=== PATIENT | female | born 1975 | race Caucasian/White ===

== ENCOUNTER 2020-05-07 11:29 | Emergency (ER) | payer OTHER ==
[2020-05-07] MEDS ORDERED: BENADRYL 50 MG/ML IV ONE (11:53)
[2020-05-07] MEDS ORDERED: Sodium Chloride 0.9% 1000 ML 1,000 ML IV STA (11:53)
[2020-05-07] MEDS ORDERED: TORAdol 30 mg Injection IV ONE (11:53)
[2020-05-07] MEDS ORDERED: Inapsine 5 MG/2 ML IV ONE (11:53)
[2020-05-07] MEDS ORDERED: TORAdol 30 mg Injection ONE (12:02)
[2020-05-07] MEDS ORDERED: Inapsine 5 MG/2 ML ONE (12:02)
[2020-05-07] MEDS ORDERED: BENADRYL 50 MG/ML ONE (12:03)
[2020-05-07] MEDS ORDERED: Sodium Chloride 0.9% 1000 ML 1,000 ML ONE (12:03)
[2020-05-07 12:05] LABS: Absolute Neutrophil Ct (ANC) 3.73 (1.4-6.9); BASOPHIL % 1.1 % (0.0-0.4); Eosinophil (Absolute #) 0.44 (0-0.5); Hemoglobin 14.2 gm/dl (12.0-16.0); Lymphocyte (Absolute #) 3.68 (1.0-4.6); Lymphocytes % 41.5 % (24.0-44.0); Mean Cell Volume 89.8 fl (78-100); Mean Corpuscular Hgb Concent. 32.3 g/dl (32-36); Mean Platelet Volume 11.5 fl (7.5-11.0); Monocyte (Absolute #) 0.91 (0.0-1.3); Monocytes % 10.3 % (0.0-12.0); Neutrophil % 42.1 % (36.0-66.0); Platelet Count 244 K/mm3 (150-450); Red Cell Distribution Width 12.6 % (11.5-14.0); White Blood Count 8.9 K/mm3 (4.0-10.5)
[2020-05-07 12:25] LABS: ALBUMIN 4.2 g/dL (3.5-5.0); ALKALINE PHOSPHATASE 75 U/L (38-126); ANION GAP 7.7 MEQ/L (5-15); BLOOD UREA NITROGEN 8 mg/dL (7-17); CHLORIDE 104 mmol/L (98-107); Calcium 9.5 mg/dL (8.4-10.2); Carbon Dioxide 30 mmol/L (22-30); Creatinine 1 0.69 mg/dL (0.52-1.04); EST GLOMERULAR FILTRATION RATE > 60.0 ML/MIN; Glucose 111 mg/dL (74-106); LIPASE 372 U/L (23-300); SGOT/AST 27 U/L (14-36); SGPT/ALT 18 U/L (0-35); SODIUM 138 mmol/L (137-145); Total Protein 7.4 g/dL (6.3-8.2)
--- NOTE | 2020-05-07 12:30 | ERPHSYRPT ---
- History of Present Illness Time Seen by Provider: 05/07/20 11:30 Source: patient Exam Limitations: no limitations Patient Subjective Stated Complaint: abd pain Triage Nursing Assessment: ptt o ED c/o abd pain. states she was hospitalized at [facility] 3 wks ago for pancreatitis. she was DC home and could tolerate PO fluids and food at that time. states in last 2-3 days pain has increased and began radiating to back and has not been tolering PO. last PO intake today was water and emesis followed. denies COVID exposure. and soft and tender to palp. Physician History: Patient here with midepigastric pain. Patient states she has a history of pancreatitis. Diagnosed few weeks ago. She was admitted to [facility]. She has been since discharge and follow-up with her PCP. However, she comes in because she has continued midepigastric pain. No falls no trauma. No fever no chills. Patient does have a history of rheumatoid arthritis and fibromyalgia. Location: mid-epigastric Quality: sharp Radiation: none Severity: moderate Duration: acute on chronic Timing: gradual Modifying factors/associated signs and symptoms: none tried Timing/Duration: week(s) Severity: moderate Allergies/Adverse Reactions: cephalexin [From Keflex] Allergy (Verified 05/07/20 11:43) codeine Allergy (Verified 05/07/20 11:43) latex Allergy (Verified 05/07/20 11:43) Penicillins Allergy (Verified 05/07/20 11:43) Home Medications: Acetaminophen [Tylenol Arthritis] 650 mg PO DAILY PRN PRN 05/07/20 [History] Adalimumab [Humira(Cf) Pen] 40 mg IJ WEEKLY 05/07/20 [History] Ascorbic Acid [Vitamin C] 1,000 mg PO DAILY 05/07/20 [History] Biotin [Mark Anthony Biotin] 10,000 mcg PO DAILY 05/07/20 [History] Buspirone HCl [Buspar] 15 mg PO TID 05/07/20 [History] Calcium Carb,Gluc/Mag Ox,Gluc [Calcium Magnesium Caplet] 1 tab PO DAILY 05/07/20 [History] Cholecalciferol (Vitamin D3) [D3 Dots] 125 mcg PO DAILY 05/07/20 [History] Cimetidine 200 mg PO DAILY PRN PRN 05/07/20 [History] Duloxetine HCl 30 mg PO BID 05/07/20 [History] Estradiol 2 mg PO DAILY 05/07/20 [History] Etodolac 400 mg [Lodine 400 mg] 400 mg PO BID 05/07/20 [History] Folic Acid 1 mg PO DAILY 05/07/20 [History] Hydroxychloroquine Sulfate 200 mg PO BID 05/07/20 [History] Hydroxyzine HCl 25 mg PO TID 05/07/20 [History] Lisinopril 10 mg [Zestril 10 MG] 10 mg PO DAILY 05/07/20 [History] Loratadine/Pseudoephedrine Sul [Claritin-D 12 Hour Tablet] 1 tab PO BID 05/07/20 [History] Montelukast Sodium 10 mg [Singulair 10 MG] 10 mg PO DAILY 05/07/20 [History] Multivit-Min/Iron/Folic/Lutein [Multivitamin Women 50 Plus Tab] 1 tab PO DAILY 05/07/20 [History] Pantoprazole 20 mg [Protonix 20MG Tablet] 40 mg PO DAILY 05/07/20 [History] Pregabalin 50 mg [Lyrica 50MG] 50 mg PO TID 05/07/20 [History] Tizanidine HCl 4 mg PO QID 05/07/20 [History] diphenhydrAMINE HCL [Benadryl] 25 mg PO DAILY PRN PRN 05/07/20 [History] predniSONE [Prednisone] 5 mg PO DAILY PRN PRN 05/07/20 [History] Hx Tetanus, Diphtheria Vaccination/Date Given: No Hx Influenza Vaccination/Date Given: Yes Hx Pneumococcal Vaccination/Date Given: No Immunizations Up to Date: Yes Travel Risk - International Travel Have you traveled outside of the country in past 3 weeks: No - Coronavirus Screening Are you exhibiting any of the following symptoms?: Yes Symptoms: Vomiting/Diarrhea Close contact with a COVID-19 positive Pt in past 14-21 Days: No - Review of Systems Constitutional: No Fever, No Chills Eyes: No Symptoms Ears, Nose, & Throat: No Symptoms Respiratory: No Cough, No Dyspnea Cardiac: No Chest Pain, No Edema, No Syncope Abdominal/Gastrointestinal: Abdominal Pain, Nausea, No Vomiting, No Diarrhea Genitourinary Symptoms: No Dysuria Musculoskeletal: No Back Pain, No Neck Pain Skin: No Rash Neurological: No Dizziness, No Focal Weakness, No Sensory Changes Psychological: No Symptoms Endocrine: No Symptoms All Other Systems: Reviewed and Negative - Past Medical History Pertinent Past Medical History: Yes Neurological History: Migraines, Other Cardiac History: No Pertinent History Respiratory History: Asthma, Pneumonia Endocrine Medical History: No Pertinent History Musculoskeletal History: Fibromyalgia, Osteoarthritis, Rheumatoid Arthritis Other Medical History: SX HX: CHOLESTECTOMY, RONN, - Past Surgical History Past Surgical History: Yes Gastrointestinal: Cholecystectomy Female Surgical History: Hysterectomy - Social History Smoking Status: Current every day smoker How long have you smoked: years Exposure to second hand smoke: Yes Drug Use: none Patient Lives Alone: No - Female History Hx Now: No (hysterectomy) - Nursing Vital Signs Nursing Vital Signs: Initial Vital Signs Temperature 97.4 F 05/07/20 11:34 Pulse Rate 93 H 05/07/20 11:34 Respiratory Rate 17 05/07/20 11:34 Blood Pressure 163/101 05/07/20 11:34 O2 Sat by Pulse Oximetry 98 05/07/20 11:34 Pain Scale Pain Intensity 9 - Physical Exam General Appearance: no apparent distress, alert Eye Exam: PERRL/EOMI, eyes nml inspection Ears, Nose, Throat Exam: normal ENT inspection, TMs normal, pharynx normal, moist mucous membranes Neck Exam: normal inspection, non-tender, supple, full range of motion Respiratory Exam: normal breath sounds, lungs clear, No respiratory distress Cardiovascular Exam: regular rate/rhythm, normal heart sounds, normal peripheral pulses Gastrointestinal/Abdomen Exam: soft, normal bowel sounds, other (Midepigastric tenderness without rebound or guarding.), No tenderness, No mass Back Exam: normal inspection, normal range of motion, No CVA tenderness, No vertebral tenderness Extremity Exam: normal inspection, normal range of motion, pelvis stable Neurologic Exam: alert, oriented x 3, cooperative, normal mood/affect, nml cerebellar function, nml station & gait, sensation nml, No motor deficits Skin Exam: normal color, warm, dry, No rash Lymphatic Exam: No adenopathy SpO2: 98 - Course Nursing assessment & vital signs reviewed: Yes Ordered Tests: Active Orders 24 hr Category Date Time Status Bedrest with BRP/BSC ROUTINE Activity 05/07/20 13:12 Ordered Call Admit Doctor for Orders ON ADMISSION Care 05/07/20 13:12 Ordered Code Status Order ROUTINE Care 05/07/20 13:11 Ordered EKG-ER Only STAT Care 05/07/20 11:53 Active Fall Protocol ROUTINE Care 05/07/20 13:12 Ordered IV Care Q6H Care 05/07/20 13:11 Ordered IV Insertion STAT Care 05/07/20 11:[address] in Observation ROUTINE Care 05/07/20 13:11 Ordered NPO Diet 05/07/20 13:12 Ordered ABDOMEN AND PELVIS W CONTRAST [CT] Stat Exams 05/07/20 11:55 Taken CBC W DIFF AM.LAB Lab 05/08/20 04:00 Ordered CBC W DIFF Stat Lab 05/07/20 11:50 Completed CMP AM.LAB Lab 05/08/20 04:00 Ordered CMP Stat Lab 05/07/20 11:50 Completed ESR [Erythrocyte Sedimentation Rate] Stat Lab 05/07/20 11:50 Completed LIPASE Stat Lab 05/07/20 11:50 Completed Lactic Acid AM.LAB Lab 05/08/20 04:00 Ordered UA W/RFX UR CULTURE Stat Lab 05/07/20 11:53 Ordered Medication Summary Discontinued Medications Generic Name Dose Route Start Last Admin Trade Name Freq PRN Reason Stop Dose Admin Diphenhydramine HCl 25 mg 05/07/20 11:53 05/07/20 12:05 Benadryl 50 Mg/Ml IV 05/07/20 11:54 25 mg STAT ONE Administration Diphenhydramine HCl Confirm 05/07/20 12:03 Benadryl 50 Mg/Ml Administered 05/07/20 12:04 Dose 50 mg .ROUTE .STK-MED ONE Droperidol 1.25 mg 05/07/20 11:53 05/07/20 12:07 Inapsine 5 Mg/2 Ml IV 05/07/20 11:54 1.25 mg STAT ONE Administration Droperidol Confirm 05/07/20 12:02 Inapsine 5 Mg/2 Ml Administered 05/07/20 12:03 Dose 5 mg .ROUTE .STK-MED ONE Sodium Chloride 1,000 mls @ 999 mls/hr 05/07/20 11:53 05/07/20 13:07 Sodium Chloride 0.9% 1000 Ml IV 05/07/20 12:53 Infused .Q1H1M STA Infusion Sodium Chloride Confirm 05/07/20 12:03 Sodium Chloride 0.9% 1000 Ml Administered 05/07/20 12:04 Dose 1,000 mls @ ud .ROUTE .STK-MED ONE Ketorolac Tromethamine 30 mg 05/07/20 11:53 05/07/20 12:06 Toradol 30 Mg Injection IV 05/07/20 11:54 30 mg STAT ONE Administration Ketorolac Tromethamine Confirm 05/07/20 12:02 Toradol 30 Mg Injection Administered 05/07/20 12:03 Dose 30 mg .ROUTE .STK-MED ONE Lab/Rad Data: Laboratory Result Diagrams 05/07/20 11:50 05/07/20 11:50 Laboratory Results 05/07/20 05/07/20 05/07/20 Range/Units 11:50 11:50 11:50 WBC 8.9 (4.0-10.5) K/mm3 RBC 4.90 (4.1-5.4) M/mm3 Hgb 14.2 (12.0-16.0) gm/dl Hct 44.0 (35-47) % MCV 89.8 (78-100) fl MCH 29.0 (26-32) pg MCHC 32.3 (32-36) g/dl RDW 12.6 (11.5-14.0) % Plt Count 244 (150-450) K/mm3 MPV 11.5 H (7.5-11.0) fl Gran % 42.1 (36.0-66.0) % Eos # (Auto) 0.44 (0-0.5) Absolute Lymphs (auto) 3.68 (1.0-4.6) Absolute Monos (auto) 0.91 (0.0-1.3) Lymphocytes % 41.5 (24.0-44.0) % Monocytes % 10.3 (0.0-12.0) % Eosinophils % 5.0 (0.00-5.0) % Basophils % 1.1 (0.0-0.4) % Absolute Granulocytes 3.73 (1.4-6.9) Basophils # 0.10 (0-0.4) ESR 30 H (0-20) mm/hr Sodium 138 (137-145) mmol/L Potassium 4.0 (3.5-5.1) mmol/L Chloride 104 (98-107) mmol/L Carbon Dioxide 30 (22-30) mmol/L Anion Gap 7.7 (5-15) MEQ/L BUN 8 (7-17) mg/dL Creatinine 0.69 (0.52-1.04) mg/dL Estimated GFR > 60.0 ML/MIN Glucose 111 H (74-106) mg/dL Calcium 9.5 (8.4-10.2) mg/dL Total Bilirubin 0.40 (0.2-1.3) mg/dL AST 27 (14-36) U/L ALT 18 (0-35) U/L Alkaline Phosphatase 75 (38-126) U/L Serum Total Protein 7.4 (6.3-8.2) g/dL Albumin 4.2 (3.5-5.0) g/dL Lipase 372 H (23-300) U/L - Progress Progress: improved Progress Note: 05/07/20 12:30 differential diagnosis includes kidney stone, compression fracture, infection, UTI, triple AAA - basic labs including: CBC, lipase, CMP, UA, ESR - insert IV for fluids, pain meds, nausea control - consider imaging: CT ab/pelvis 05/07/20 13:13 Patient has acute pancreatitis. We will admit here. After reviewing labs, appropriate imaging, discussion with patient and family. We decided the patient should be admitted to the hospital. I called the inpatient team discussed history, physical and results with them in detail. We decided on the plan of action and admission to [facility]. We agreed on appropriate consults and who would call them. - Departure Departure Disposition: Observation Clinical Impression: Acute pancreatitis Condition: Stable Critical Care Time: No Referrals: PHOUNG ABDULLAHI [Primary Care Provider] -
[2020-05-07] MEDS ORDERED: Zofran 4 MG/2 ML VIAL IV PRN (13:11)
[2020-05-07] MEDS ORDERED: DECADRON 10MG INJ. IV ONE (13:15)
[2020-05-07] MEDS ORDERED: DECADRON 10MG INJ. ONE (13:19)
[2020-05-07] MEDS: Sodium Chloride 0.9% 1000 ML 1,000 ML IV SCH (13:53)
--- NOTE | 2020-05-07 14:50 | PCM.HP ---
History of Present Illness - Chief Complaint Chief Complaint: pancreaitis History of Present Illness: is a 44 year old female who was admitted to [facility] 3 weeks ago for acute pancreatitis, she states she was sent home with persistent pain but was told she was ok because she was able to tolerate po intake, has been able to eat and drink but pain has worsened in the last 2-3 days and yesterday she began vomiting and unable to keep anything down. Has a history of RA, is on a long li st of medications and receives care in [facility] system, hx of cholecystectomy and denies regular alcohol use. - Review of Systems Constitutional: No Fever, No Chills Respiratory: No Cough, No Short Of Breath Cardiac: No Chest Pain, No Edema, No Syncope Abdominal/Gastrointestinal: Abdominal Pain, Nausea, Vomiting, No Diarrhea, No Constipation Genitourinary Symptoms: No Dysuria Skin: No Rash All Other Systems: Reviewed and Negative Medications & Allergies Home Medications: Home Medication List Acetaminophen [Tylenol Arthritis] 650 mg PO DAILY PRN PRN 05/07/20 [History Confirmed 05/07/20] Adalimumab [Humira(Cf) Pen] 40 mg IJ WEEKLY 05/07/20 [History Confirmed 05/07/20] Ascorbic Acid [Vitamin C] 1,000 mg PO DAILY 05/07/20 [History Confirmed 05/07/20] Biotin [Mark Anthony Biotin] 10,000 mcg PO DAILY 05/07/20 [History Confirmed 05/07/20] Buspirone HCl [Buspar] 15 mg PO TID 05/07/20 [History Confirmed 05/07/20] Calcium Carb,Gluc/Mag Ox,Gluc [Calcium Magnesium Caplet] 1 tab PO DAILY 05/07/20 [History Confirmed 05/07/20] Cholecalciferol (Vitamin D3) [D3 Dots] 125 mcg PO DAILY 05/07/20 [History Confirmed 05/07/20] Cimetidine 200 mg PO DAILY PRN PRN 05/07/20 [History Confirmed 05/07/20] Duloxetine HCl 30 mg PO BID 05/07/20 [History Confirmed 05/07/20] Estradiol 2 mg PO DAILY 05/07/20 [History Confirmed 05/07/20] Etodolac 400 mg [Lodine 400 mg] 400 mg PO BID 05/07/20 [History Confirmed 05/07/20] Folic Acid 1 mg PO DAILY 05/07/20 [History Confirmed 05/07/20] Hydroxychloroquine Sulfate 200 mg PO BID 05/07/20 [History Confirmed 05/07/20] Hydroxyzine HCl 25 mg PO TID 05/07/20 [History Confirmed 05/07/20] Lisinopril 10 mg [Zestril 10 MG] 10 mg PO DAILY 05/07/20 [History Confirmed 05/07/20] Loratadine/Pseudoephedrine Sul [Claritin-D 12 Hour Tablet] 1 tab PO BID 05/07/20 [History Confirmed 05/07/20] Montelukast Sodium 10 mg [Singulair 10 MG] 10 mg PO DAILY 05/07/20 [History Confirmed 05/07/20] Multivit-Min/Iron/Folic/Lutein [Multivitamin Women 50 Plus Tab] 1 tab PO DAILY 05/07/20 [History Confirmed 05/07/20] Pantoprazole 20 mg [Protonix 20MG Tablet] 40 mg PO DAILY 05/07/20 [History Confirmed 05/07/20] Pregabalin 50 mg [Lyrica 50MG] 50 mg PO TID 05/07/20 [History Confirmed 05/07/20] Tizanidine HCl 4 mg PO QID 05/07/20 [History Confirmed 05/07/20] diphenhydrAMINE HCL [Benadryl] 25 mg PO DAILY PRN PRN 05/07/20 [History Confirmed 05/07/20] predniSONE [Prednisone] 5 mg PO DAILY PRN PRN 05/07/20 [History Confirmed 05/07/20] Allergies/Adverse Reactions: Allergies Allergy/AdvReac Type Severity Reaction Status Date / Time cephalexin [From Keflex] Allergy Verified 05/07/20 11:43 codeine Allergy Verified 05/07/20 11:43 latex Allergy Verified 05/07/20 11:43 Penicillins Allergy Verified 05/07/20 11:43 - Past Medical History Past Medical History: Yes Neurological History: Migraines, Other Cardiac History: Hypertension Respiratory History: Asthma, Pneumonia Endocrine Medical History: No Pertinent History Musculoskelatal History: Fibromyalgia, Osteoarthritis, Rheumatoid Arthritis GI Medical History: Gallbladder Disease, Pancreatitis Pyscho-Social History: Anxiety, Depression Reproductive Disorders: Abnormal Uterine Bleeding, Endometriosis, Menstrual Problems Comment: SX HX: CHOLESTECTOMY, RONN, - Female History Are you now?: No (hysterectomy) - Past Surgical History Past Surgical History: Yes Neuro Surgical History: No Pertinent History Cardiac History: No Pertinent History Respiratory Surgery: No Pertinent History GI Surgical History: Cholecystectomy, Exploratory Laparoscopy Genitourinary Surgical Hx: No Pertinent History Musculskeletal Surgical Hx: No Pertinent History Female Surgical History: Hysterectomy - Social History Smoking Status: Current every day smoker How long have you smoked: years Exposure to second hand smoke: Yes Alcohol: Rarely Drug Use: none - Physical Exam Vital Signs: Vital Signs - 24 hr Temp Pulse Resp BP Pulse Ox 05/07/20 13:15 98 05/07/20 13:15 83 18 124/90 95 05/07/20 11:34 97.4 F 93 H 17 163/101 98 General Appearance: no apparent distress, obese Neurologic Exam: alert, oriented x 3, cooperative Respiratory Exam: normal breath sounds, lungs clear, No respiratory distress Cardiovascular Exam: regular rate/rhythm, normal heart sounds, normal peripheral pulses Gastrointestinal/Abdomen Exam: soft, tenderness (epigastrium), No guarding, No rebound Extremity Exam: normal inspection, normal range of motion, pelvis stable Skin Exam: normal color, warm, dry, No rash Results - Labs Lab/Micro Results: Lab Results-Last 24 Hours 05/07/20 05/07/20 05/07/20 Range/Units 11:50 11:50 11:50 WBC 8.9 (4.0-10.5) K/mm3 RBC 4.90 (4.1-5.4) M/mm3 Hgb 14.2 (12.0-16.0) gm/dl Hct 44.0 (35-47) % MCV 89.8 (78-100) fl MCH 29.0 (26-32) pg MCHC 32.3 (32-36) g/dl RDW 12.6 (11.5-14.0) % Plt Count 244 (150-450) K/mm3 MPV 11.5 H (7.5-11.0) fl Gran % 42.1 (36.0-66.0) % Eos # (Auto) 0.44 (0-0.5) Absolute Lymphs (auto) 3.68 (1.0-4.6) Absolute Monos (auto) 0.91 (0.0-1.3) Lymphocytes % 41.5 (24.0-44.0) % Monocytes % 10.3 (0.0-12.0) % Eosinophils % 5.0 (0.00-5.0) % Basophils % 1.1 (0.0-0.4) % Absolute Granulocytes 3.73 (1.4-6.9) Basophils # 0.10 (0-0.4) ESR 30 H (0-20) mm/hr Sodium 138 (137-145) mmol/L Potassium 4.0 (3.5-5.1) mmol/L Chloride 104 (98-107) mmol/L Carbon Dioxide 30 (22-30) mmol/L Anion Gap 7.7 (5-15) MEQ/L BUN 8 (7-17) mg/dL Creatinine 0.69 (0.52-1.04) mg/dL Estimated GFR > 60.0 ML/MIN Glucose 111 H (74-106) mg/dL Calcium 9.5 (8.4-10.2) mg/dL Total Bilirubin 0.40 (0.2-1.3) mg/dL AST 27 (14-36) U/L ALT 18 (0-35) U/L Alkaline Phosphatase 75 (38-126) U/L Serum Total Protein 7.4 (6.3-8.2) g/dL Albumin 4.2 (3.5-5.0) g/dL Lipase 372 H (23-300) U/L - Radiology Impressions Radiology Exams & Impressions: Radiology Procedures Category Date Time Status ABDOMEN AND PELVIS W CONTRAST [CT] Stat Exams 05/07/20 11:55 Taken Assessment/Plan (1) Acute pancreatitis Current Visit: Yes Status: Acute Assessment & Plan: etiology unclear, no obstruction or cyst on ct scan. plan npo, antiemetics and pain control and fluids, repeat enzymes in the am. will likely need GI consult following discharge, ?autoimmune etiology of pancreatitis vs medication side effect. home med list has been debrided at time of admission Code(s): K85.90 - ACUTE PANCREATITIS WITHOUT NECROSIS OR INFECTION, UNSP (2) Rheumatoid arthritis Current Visit: Yes Status: Acute Code(s): M06.9 - RHEUMATOID ARTHRITIS, UNSPECIFIED
--- NOTE | 2020-05-07 16:08 | XRAY ---
Indication: Upper abdomen pain 3 weeks. History of pancreatitis. Multiple contiguous axial images obtained through the abdomen and pelvis using 80 cc of Isovue-370 contrast only. Comparison: None. Lung bases clear. Heart is not enlarged. Noncontrasted stomach and bowel loops appear nonobstructed. Normal appendix with appendicoliths. Radiopacities throughout the small and large bowel loops presumed ingested medication/bismuth or barium. Previous cholecystectomy and hysterectomy. Pancreas demonstrates minimal haziness possible mild/early pancreatitis. No free fluid/air. Mild fatty hepatomegaly measuring 21.8 cm. 2 cm right renal cyst. Remaining liver, pancreas, spleen, adrenal glands, kidneys, ureters, bladder, and aorta appear unremarkable. No pathologic retroperitoneal lymphadenopathy. Osseous structures intact with mild degenerative spondylosis throughout the thoracolumbar spine and bilateral L5 spondylolysis with 6-7 mm spondylolisthesis. Small infraumbilical fatty ventral hernia. Impression: 1. Pancreatic haziness. Rule out mild/early pancreatitis. 2. Incidental fatty hepatomegaly, right renal cyst, multilevel degenerative spondylosis, fatty ventral hernia, and L5 spondylolysis with grade 1 spondylolisthesis. Comment: Preliminary interpretation was made by [facility]. No critical discrepancy.
[2020-05-07] MEDS: Lyrica 50MG PO SCH ×2 (16:42→21:19)
[2020-05-07] MEDS: BUSPAR 5 MG PO SCH ×2 (16:43→21:20)
[2020-05-07] MEDS: NICODERM CQ 14 MG TOP SCH (16:43)
[2020-05-07 16:50] LABS: Appearance CLEAR (CLEAR); Bilirubin NEGATIVE (NEGATIVE); Blood NEGATIVE Ery/ul (0-5); Epithelial Cells RARE /HPF (FEW); Glucose NEGATIVE (NEGATIVE); Ketones NEGATIVE (NEGATIVE); Leukocyte Esterase NEGATIVE (NEGATIVE); Mucus SLIGHT /HPF (NEGATIVE); Nitrite NEGATIVE (NEGATIVE); Protein,Urine Dip 30 (Negative); Urobilinogen NEGATIVE mg/dL (0-1)
[2020-05-07 16:52] LABS: Specific Gravity 1.015 (1.005-1.025)
[2020-05-07] MEDS: Hydromorphone 1 mg/ml Injection IV PRN (19:48)
[2020-05-07] MEDS: Cymbalta 30 MG Capsule PO SCH (21:19)
[2020-05-07] MEDS: HYDROXYCHLOROQUINE SULFATE PO SCH (21:20)
[2020-05-07] MEDS ORDERED: NON-FORMULARY ITEM (Buspirone Hcl [Buspar] 15 MG) PO SCH (22:00)
[2020-05-08] MEDS: Sodium Chloride 0.9% 1000 ML 1,000 ML IV SCH (00:01)
[2020-05-08 05:53] LABS: Absolute Neutrophil Ct (ANC) 6.34 (1.4-6.9); BASOPHIL % 0.1 % (0.0-0.4); Basophil (Absolute #) 0.01 (0-0.4); Eosinophil % 0.1 % (0.00-5.0); Eosinophil (Absolute #) 0.01 (0-0.5); Hematocrit 40.3 % (35-47); Hemoglobin 13.2 gm/dl (12.0-16.0); Lymphocyte (Absolute #) 1.17 (1.0-4.6); Mean Cell Volume 89.2 fl (78-100); Mean Corpuscular Hemoglobin 29.2 pg (26-32); Mean Corpuscular Hgb Concent. 32.8 g/dl (32-36); Mean Platelet Volume 10.9 fl (7.5-11.0); Monocyte (Absolute #) 0.27 (0.0-1.3); Monocytes % 3.5 % (0.0-12.0); Neutrophil % 81.3 % (36.0-66.0); Platelet Count 242 K/mm3 (150-450); Red Blood Count 4.52 M/mm3 (4.1-5.4); Red Cell Distribution Width 12.2 % (11.5-14.0); White Blood Count 7.8 K/mm3 (4.0-10.5)
[2020-05-08 06:12] LABS: AMYLASE 33 U/L (30-110); LIPASE 83 U/L (23-300)
[2020-05-08 06:14] LABS: ALBUMIN 3.9 g/dL (3.5-5.0); ALKALINE PHOSPHATASE 62 U/L (38-126); ANION GAP 8.8 MEQ/L (5-15); BLOOD UREA NITROGEN 9 mg/dL (7-17); CHLORIDE 108 mmol/L (98-107); Calcium 8.8 mg/dL (8.4-10.2); Carbon Dioxide 25 mmol/L (22-30); Creatinine 1 0.47 mg/dL (0.52-1.04); EST GLOMERULAR FILTRATION RATE > 60.0 ML/MIN; Glucose 132 mg/dL (74-106); Potassium 4.2 mmol/L (3.5-5.1); SGOT/AST 24 U/L (14-36); SGPT/ALT 17 U/L (0-35); SODIUM 137 mmol/L (137-145); Total Protein 6.9 g/dL (6.3-8.2)
[2020-05-08] MEDS: Hydromorphone 1 mg/ml Injection IV PRN (06:16)
[2020-05-08 06:44] VITALS: BP 168/88; PULSE 82; O2SAT 93
[2020-05-08] MEDS: NICODERM CQ 14 MG TOP SCH (08:27)
[2020-05-08] MEDS: Cymbalta 30 MG Capsule PO SCH (08:51)
[2020-05-08] MEDS: Lyrica 50MG PO SCH (08:52)
[2020-05-08] MEDS: BUSPAR 5 MG PO SCH (08:52)
[2020-05-08] MEDS: HYDROXYCHLOROQUINE SULFATE PO SCH (08:52)
--- NOTE | 2020-05-08 09:00 | PCM.DS ---
Discharge Summary Date of Admission: 05/07/20 13:29 Admitting Physician: HUSEYIN HERNANDEZ Primary Care Provider: PHUONG ABDULLAHI Allergies Allergies cephalexin [From Keflex] Allergy (Verified 05/07/20 11:43) codeine Allergy (Verified 05/07/20 11:43) latex Allergy (Verified 05/07/20 11:43) Penicillins Allergy (Verified 05/07/20 11:43) Hospital Summary - Hospital Course Hospital Course: patient was admitted with recurent pancreatitis, enzymes have resolved and she feels much better. insists she needs to go home today to care for her mother, she understands importance of bland diet and to keep GI f/u appt - Vitals & Intake/Output Vital Signs: Vital Signs Temperature 97.1 F 05/08/20 06:44 Pulse Rate 82 05/08/20 06:44 Respiratory Rate 18 05/08/20 06:44 Blood Pressure 168/88 05/08/20 06:44 O2 Sat by Pulse Oximetry 93 L 05/08/20 06:44 Intake & Output: Intake & Output 05/05/20 05/06/20 05/07/20 05/08/20 11:59 11:59 11:59 11:59 Intake Total 1344 Output Total 1100 Balance 244 Weight 127.006 kg 131.4 kg - Lab Result Diagrams: 05/08/20 05:40 05/08/20 05:40 Lab Results-Last 24 Hrs: Lab Results-Last 24 Hours 05/07/20 05/07/20 05/07/20 Range/Units 11:50 11:50 11:50 WBC 8.9 (4.0-10.5) K/mm3 RBC 4.90 (4.1-5.4) M/mm3 Hgb 14.2 (12.0-16.0) gm/dl Hct 44.0 (35-47) % MCV 89.8 (78-100) fl MCH 29.0 (26-32) pg MCHC 32.3 (32-36) g/dl RDW 12.6 (11.5-14.0) % Plt Count 244 (150-450) K/mm3 MPV 11.5 H (7.5-11.0) fl Gran % 42.1 (36.0-66.0) % Eos # (Auto) 0.44 (0-0.5) Absolute Lymphs (auto) 3.68 (1.0-4.6) Absolute Monos (auto) 0.91 (0.0-1.3) Lymphocytes % 41.5 (24.0-44.0) % Monocytes % 10.3 (0.0-12.0) % Eosinophils % 5.0 (0.00-5.0) % Basophils % 1.1 (0.0-0.4) % Absolute Granulocytes 3.73 (1.4-6.9) Basophils # 0.10 (0-0.4) ESR 30 H (0-20) mm/hr Sodium 138 (137-145) mmol/L Potassium 4.0 (3.5-5.1) mmol/L Chloride 104 (98-107) mmol/L Carbon Dioxide 30 (22-30) mmol/L Anion Gap 7.7 (5-15) MEQ/L BUN 8 (7-17) mg/dL Creatinine 0.69 (0.52-1.04) mg/dL Estimated GFR > 60.0 ML/MIN Glucose 111 H (74-106) mg/dL Lactic Acid (0.4-2.0) Calcium 9.5 (8.4-10.2) mg/dL Total Bilirubin 0.40 (0.2-1.3) mg/dL AST 27 (14-36) U/L ALT 18 (0-35) U/L Alkaline Phosphatase 75 (38-126) U/L Serum Total Protein 7.4 (6.3-8.2) g/dL Albumin 4.2 (3.5-5.0) g/dL Amylase (30-110) U/L Lipase 372 H (23-300) U/L Urine Color (YELLOW) Urine Appearance (CLEAR) Urine pH (5-6) Ur Specific [place] (1.005-1.025) Urine Protein (Negative) Urine Ketones (NEGATIVE) Urine Blood (0-5) Christiano/ul Urine Nitrite (NEGATIVE) Urine Bilirubin (NEGATIVE) Urine Urobilinogen (0-1) mg/dL Ur Leukocyte Esterase (NEGATIVE) Urine WBC (Auto) (0-5) /HPF Urine RBC (Auto) (0-2) /HPF U Epithel Cells (Auto) (FEW) /HPF Urine Bacteria (Auto) (NEGATIVE) /HPF Urine Mucus (Auto) (NEGATIVE) /HPF Urine Culture Reflexed (NO) Urine Glucose (NEGATIVE) mg/dL 05/07/20 05/08/20 05/08/20 Range/Units 16:38 05:30 05:40 WBC 7.8 (4.0-10.5) K/mm3 RBC 4.52 (4.1-5.4) M/mm3 Hgb 13.2 (12.0-16.0) gm/dl Hct 40.3 (35-47) % MCV 89.2 (78-100) fl MCH 29.2 (26-32) pg MCHC 32.8 (32-36) g/dl RDW 12.2 (11.5-14.0) % Plt Count 242 (150-450) K/mm3 MPV 10.9 (7.5-11.0) fl Gran % 81.3 H (36.0-66.0) % Eos # (Auto) 0.01 (0-0.5) Absolute Lymphs (auto) 1.17 (1.0-4.6) Absolute Monos (auto) 0.27 (0.0-1.3) Lymphocytes % 15.0 L (24.0-44.0) % Monocytes % 3.5 (0.0-12.0) % Eosinophils % 0.1 (0.00-5.0) % Basophils % 0.1 (0.0-0.4) % Absolute Granulocytes 6.34 (1.4-6.9) Basophils # 0.01 (0-0.4) ESR (0-20) mm/hr Sodium (137-145) mmol/L Potassium (3.5-5.1) mmol/L Chloride (98-107) mmol/L Carbon Dioxide (22-30) mmol/L Anion Gap (5-15) MEQ/L BUN (7-17) mg/dL Creatinine (0.52-1.04) mg/dL Estimated GFR ML/MIN Glucose (74-106) mg/dL Lactic Acid 1.2 (0.4-2.0) Calcium (8.4-10.2) mg/dL Total Bilirubin (0.2-1.3) mg/dL AST (14-36) U/L ALT (0-35) U/L Alkaline Phosphatase (38-126) U/L Serum Total Protein (6.3-8.2) g/dL Albumin (3.5-5.0) g/dL Amylase (30-110) U/L Lipase (23-300) U/L Urine Color YELLOW (YELLOW) Urine Appearance CLEAR (CLEAR) Urine pH 5.0 (5-6) Ur Specific [place] 1.015 (1.005-1.025) Urine Protein 30 (Negative) Urine Ketones NEGATIVE (NEGATIVE) Urine Blood NEGATIVE (0-5) Christiano/ul Urine Nitrite NEGATIVE (NEGATIVE) Urine Bilirubin NEGATIVE (NEGATIVE) Urine Urobilinogen NEGATIVE (0-1) mg/dL Ur Leukocyte Esterase NEGATIVE (NEGATIVE) Urine WBC (Auto) NONE (0-5) /HPF Urine RBC (Auto) 3-5 (0-2) /HPF U Epithel Cells (Auto) RARE (FEW) /HPF Urine Bacteria (Auto) NONE (NEGATIVE) /HPF Urine Mucus (Auto) SLIGHT (NEGATIVE) /HPF Urine Culture Reflexed NO (NO) Urine Glucose NEGATIVE (NEGATIVE) mg/dL 05/08/20 05/08/20 Range/Units 05:40 05:40 WBC (4.0-10.5) K/mm3 RBC (4.1-5.4) M/mm3 Hgb (12.0-16.0) gm/dl Hct (35-47) % MCV (78-100) fl MCH (26-32) pg MCHC (32-36) g/dl RDW (11.5-14.0) % Plt Count (150-450) K/mm3 MPV (7.5-11.0) fl Gran % (36.0-66.0) % Eos # (Auto) (0-0.5) Absolute Lymphs (auto) (1.0-4.6) Absolute Monos (auto) (0.0-1.3) Lymphocytes % (24.0-44.0) % Monocytes % (0.0-12.0) % Eosinophils % (0.00-5.0) % Basophils % (0.0-0.4) % Absolute Granulocytes (1.4-6.9) Basophils # (0-0.4) ESR (0-20) mm/hr Sodium 137 (137-145) mmol/L Potassium 4.2 (3.5-5.1) mmol/L Chloride 108 H (98-107) mmol/L Carbon Dioxide 25 (22-30) mmol/L Anion Gap 8.8 (5-15) MEQ/L BUN 9 (7-17) mg/dL Creatinine 0.47 L (0.52-1.04) mg/dL Estimated GFR > 60.0 ML/MIN Glucose 132 H (74-106) mg/dL Lactic Acid (0.4-2.0) Calcium 8.8 (8.4-10.2) mg/dL Total Bilirubin 0.40 (0.2-1.3) mg/dL AST 24 (14-36) U/L ALT 17 (0-35) U/L Alkaline Phosphatase 62 (38-126) U/L Serum Total Protein 6.9 (6.3-8.2) g/dL Albumin 3.9 (3.5-5.0) g/dL Amylase 33 (30-110) U/L Lipase 83 (23-300) U/L Urine Color (YELLOW) Urine Appearance (CLEAR) Urine pH (5-6) Ur Specific [place] (1.005-1.025) Urine Protein (Negative) Urine Ketones (NEGATIVE) Urine Blood (0-5) Christiano/ul Urine Nitrite (NEGATIVE) Urine Bilirubin (NEGATIVE) Urine Urobilinogen (0-1) mg/dL Ur Leukocyte Esterase (NEGATIVE) Urine WBC (Auto) (0-5) /HPF Urine RBC (Auto) (0-2) /HPF U Epithel Cells (Auto) (FEW) /HPF Urine Bacteria (Auto) (NEGATIVE) /HPF Urine Mucus (Auto) (NEGATIVE) /HPF Urine Culture Reflexed (NO) Urine Glucose (NEGATIVE) mg/dL - Radiology Exams Ordered Rad Exams-Entire Visit: Radiology Procedures Category Date Time Status ABDOMEN AND PELVIS W CONTRAST [CT] Stat Exams 05/07/20 11:55 Completed - Procedures and Test Procedures and Tests throughout Hospitalization: Therapy Orders & Screens 05/07/20 15:03 RT Screen per Nursing Assess ONCE Comment: Protocol Order Physician Instructions: Greater than 3 points order RT Admission Screen Reason For Exam: Triggered on Admission Diagnosis: pancreaitis Diagnosis: pancreaitis Pneumonia: No Home O2: No Asthma: Yes CHF: No Home CPAP/BIPAP: No Home Nebs/MDI: Yes Total Points: 9 Smoking Cessation Education ONCE Comment: Diagnosis: pancreaitis Smoking Status: Current every day smoker How long have you smoked: years Have you smoked in the past 12 months: Yes Approximately how many cigarettes per day: 30 Do you dip or chew tobacco: No 05/07/20 20:15 Respiratory Therapy Assessment DAILY Comment: Diagnosis: pancreaitis Discharge Exam General Appearance: no apparent distress, obese Respiratory Exam: normal breath sounds, lungs clear, No respiratory distress Cardiovascular Exam: regular rate/rhythm, normal heart sounds Gastrointestinal/Abdomen Exam: soft, No tenderness, No mass Extremity Exam: normal inspection, normal range of motion Skin Exam: normal color, warm, dry Final Diagnosis/Problem List - Final Discharge Diagnosis/Problem (1) Acute pancreatitis Current Visit: Yes Status: Acute Assessment & Plan: resolved, bland diet with increase in clear liquids Code(s): K85.90 - ACUTE PANCREATITIS WITHOUT NECROSIS OR INFECTION, UNSP (2) Rheumatoid arthritis Current Visit: Yes Status: Acute Code(s): M06.9 - RHEUMATOID ARTHRITIS, UNSPECIFIED - Discharge Disposition: Home, Self-Care Condition: Stable Prescriptions: No Action predniSONE [Prednisone] 5 mg PO DAILY PRN PRN PRN Reason: Allergies Ascorbic Acid [Vitamin C] 1,000 mg PO DAILY Lisinopril 10 mg [Zestril 10 MG] 10 mg PO DAILY Folic Acid 1 mg PO DAILY Etodolac 400 mg [Lodine 400 mg] 400 mg PO BID Adalimumab [Humira(Cf) Pen] 40 mg IJ WEEKLY Hydroxychloroquine Sulfate 200 mg PO BID Loratadine/Pseudoephedrine Sul [Claritin-D 12 Hour Tablet] 1 tab PO BID Buspirone HCl [Buspar] 15 mg PO TID Tizanidine HCl 4 mg PO QID Montelukast Sodium 10 mg [Singulair 10 MG] 10 mg PO DAILY Biotin [Mark Anthony Biotin] 10,000 mcg PO DAILY Acetaminophen [Tylenol Arthritis] 650 mg PO DAILY PRN PRN PRN Reason: pain Calcium Carb,Gluc/Mag Ox,Gluc [Calcium Magnesium Caplet] 1 tab PO DAILY diphenhydrAMINE HCL [Benadryl] 25 mg PO DAILY PRN PRN PRN Reason: Allergies Pantoprazole 20 mg [Protonix 20MG Tablet] 40 mg PO DAILY Cholecalciferol (Vitamin D3) [D3 Dots] 125 mcg PO DAILY Duloxetine HCl 30 mg PO BID Hydroxyzine HCl 25 mg PO TID Pregabalin 50 mg [Lyrica 50MG] 50 mg PO TID Multivit-Min/Iron/Folic/Lutein [Multivitamin Women 50 Plus Tab] 1 tab PO DAILY Estradiol 2 mg PO DAILY Cimetidine 200 mg PO DAILY PRN PRN PRN Reason: Pain Additional Instructions: take a very bland/low fat diet. increase clear liquid intake. return for severe pain, persistent vomiting, inability to tolerate oral intake or other concerns.
[2020-05-08] MEDS ORDERED: Zestril 10 MG PO SCH (10:00)
== END 2020-05-08 09:57 | disposition home or self-care (01) ==
LOC: ED 11:29 → MED SURG 13:29
PROVIDERS: ADMIT Family Medicine; ATTEND Family Medicine
DX: K85.90 Acute pancreatitis without necrosis or infection, unspecified (principal); R10.13 Epigastric pain; Z79.899 Other long term (current) drug therapy; M06.9 Rheumatoid arthritis, unspecified
CPT/HCPCS: 36000; 36415; 74177; 80053; 81001; 82150; 83605; 83690; 85025; 85652; 93005; 93268; 96360; 96374; 96375; 99285; G0378; J1100; J1170; J1200; J1885; A9270-GY

== ENCOUNTER 2021-01-06 11:55 | Emergency (ER) | payer OTHER ==
--- NOTE | 2021-01-06 11:59 | ERPHSYRPT ---
- History of Present Illness Time Seen by Provider: 01/06/21 11:58 Historian: patient Exam Limitations: no limitations Physician History: This is a morbidly obese 45-year-old white female who presents with cough that is causing chest pain. It has been present for approximately 2 days. Prior to the 2 days of coughing, patient did not have any chest pain. The pain is central substernal and nonradiating. Patient has no primary coronary artery disease or cardiac history as far she is aware. Patient states that she is out of her nebulizer solution. She is taking steroids, low-dose, chronically. Patient states that she cannot take codeine or any variation of it because this gives her hives. Patient has a history of gastroesophageal reflux disease and hypertension. She also has a history of pancreatitis and fibromyalgia. She denies fever. She denies abdominal pain. She denies nausea vomiting diarrhea. Timing/Duration: day(s) (2) Quality: sharpness Location: substernal, central Chest Pain Radiation: no radiation Severity of Pain-Max: moderate (With coughing only) Severity of Pain-Current: moderate (With coughing only) Modifying Factors: Improves With: coughing Associated Symptoms: cough Prior Chest Pain/Cardiac Workup: no prior chest pain, no prior cardiac workup Nitro Today/Relief: no nitro taken today Aspirin Treatment Today: 81 mg x 4, provided by ED Allergies/Adverse Reactions: cephalexin [From Keflex] Allergy (Verified 01/06/21 12:08) codeine Allergy (Verified 01/06/21 12:08) latex Allergy (Verified 01/06/21 12:08) Penicillins Allergy (Verified 01/06/21 12:08) Home Medications: Acetaminophen [Tylenol Arthritis] 650 mg PO DAILY PRN PRN 05/07/20 [History] Adalimumab [Humira(Cf) Pen] 40 mg IJ WEEKLY 05/07/20 [History] Ascorbic Acid [Vitamin C] 1,000 mg PO DAILY 05/07/20 [History] Biotin [Mark Anthony Biotin] 10,000 mcg PO DAILY 05/07/20 [History] Buspirone HCl [Buspar] 15 mg PO TID 05/07/20 [History] Calcium Carb,Gluc/Mag Ox,Gluc [Calcium Magnesium Caplet] 1 tab PO DAILY 05/07/20 [History] Cholecalciferol (Vitamin D3) [D3 Dots] 125 mcg PO DAILY 05/07/20 [History] Cimetidine 200 mg PO DAILY PRN PRN 05/07/20 [History] Duloxetine HCl 30 mg PO BID 05/07/20 [History] Estradiol 2 mg PO DAILY 05/07/20 [History] Etodolac 400 mg [Lodine 400 mg] 400 mg PO BID 05/07/20 [History] Folic Acid 1 mg PO DAILY 05/07/20 [History] Hydroxychloroquine Sulfate 200 mg PO BID 05/07/20 [History] Hydroxyzine HCl 25 mg PO TID 05/07/20 [History] Lisinopril 10 mg [Zestril 10 MG] 10 mg PO DAILY 05/07/20 [History] Loratadine/Pseudoephedrine Sul [Claritin-D 12 Hour Tablet] 1 tab PO BID 05/07/20 [History] Montelukast Sodium 10 mg [Singulair 10 MG] 10 mg PO DAILY 05/07/20 [History] Multivit-Min/Iron/Folic/Lutein [Multivitamin Women 50 Plus Tab] 1 tab PO DAILY 05/07/20 [History] Pantoprazole 20 mg [Protonix 20MG Tablet] 40 mg PO DAILY 05/07/20 [History] Pregabalin 50 mg [Lyrica 50MG] 50 mg PO TID 05/07/20 [History] Tizanidine HCl 4 mg PO QID 05/07/20 [History] diphenhydrAMINE HCL [Benadryl] 25 mg PO DAILY PRN PRN 05/07/20 [History] predniSONE [Prednisone] 5 mg PO DAILY PRN PRN 05/07/20 [History] Hx Tetanus, Diphtheria Vaccination/Date Given: No Hx Influenza Vaccination/Date Given: Yes Hx Pneumococcal Vaccination/Date Given: No Travel Risk - International Travel Have you traveled outside of the country in past 3 weeks: No - Coronavirus Screening Are you exhibiting any of the following symptoms?: No Close contact with a COVID-19 positive Pt in past 14-21 Days: No - Review of Systems Constitutional: No Symptoms Eyes: No Symptoms Ears, Nose, & Throat: No Symptoms Respiratory: Cough Cardiac: Chest Pain (With coughing) Abdominal/Gastrointestinal: No Symptoms Genitourinary Symptoms: No Symptoms Musculoskeletal: No Symptoms Skin: No Symptoms Neurological: No Symptoms Psychological: No Symptoms Endocrine: No Symptoms Hematologic/Lymphatic: No Symptoms Immunological/Allergic: No Symptoms All Other Systems: Reviewed and Negative - Past Medical History Pertinent Past Medical History: Yes Neurological History: Migraines, Other Cardiac History: Hypertension Respiratory History: Asthma, Pneumonia Endocrine Medical History: No Pertinent History Musculoskeletal History: Fibromyalgia, Osteoarthritis, Rheumatoid Arthritis GI Medical History: Gallbladder Disease, Pancreatitis Psycho-Social History: Anxiety, Depression Female Reproductive Disorders: Abnormal Uterine Bleeding, Endometriosis, Menstrual Problems Other Medical History: SX HX: CHOLESTECTOMY, RONN, - Past Surgical History Past Surgical History: Yes Neuro Surgical History: No Pertinent History Cardiac: No Pertinent History Respiratory: No Pertinent History Gastrointestinal: Cholecystectomy, Exploratory Laparoscopy Genitourinary: No Pertinent History Musculoskeletal: No Pertinent History Female Surgical History: Hysterectomy - Social History Smoking Status: Current every day smoker How long have you smoked: years Exposure to second hand smoke: Yes Drug Use: none Patient Lives Alone: No - Nursing Vital Signs Nursing Vital Signs: Initial Vital Signs Temperature 98.5 F 01/06/21 11:57 Pulse Rate 100 H 01/06/21 11:57 Respiratory Rate 10 L 01/06/21 11:57 Blood Pressure 155/75 01/06/21 11:57 O2 Sat by Pulse Oximetry 96 01/06/21 11:57 Pain Scale Pain Intensity 6 - Physical Exam General Appearance: mild distress, alert, anxiety, obese Eye Exam: PERRL/EOMI, eyes nml inspection Ears, Nose, Throat Exam: normal ENT inspection, moist mucous membranes Neck Exam: normal inspection, non-tender, supple, full range of motion Respiratory Exam: chest tenderness (With coughing), airway intact, wheezing (Mild bilateral wheezingexpiratory), No respiratory distress Cardiovascular Exam: regular rate/rhythm, normal heart sounds, normal peripheral pulses Gastrointestinal/Abdomen Exam: soft, normal bowel sounds, No tenderness Pelvic Exam: not done Rectal Exam: not done Back Exam: normal inspection, normal range of motion, No CVA tenderness, No vertebral tenderness Extremity Exam: normal inspection, normal range of motion, pelvis stable Neurologic Exam: alert, oriented x 3, cooperative, art museum aide II-XII nml as tested, normal mood/affect, nml cerebellar function, nml station & gait, sensation nml Skin Exam: normal color, warm, dry Lymphatic Exam: No adenopathy SpO2 Interpretation: normal O2 Delivery: Room Air - Course Nursing assessment & vital signs reviewed: Yes EKG Interpreted by Me: RATE (101), Sinus Tach, NORMAL AXIS, NORMAL INTERVALS, NORMAL QRS, NORMAL ST-T, Other (No acute ischemic changes on today's EKG. There are no changes when compared to EKG dated 05/07/2020) Ordered Tests: Active Orders 24 hr Category Date Time Status [employer] Marker STAT Care 01/06/21 12:24 Active EKG-ER Only STAT Care 01/06/21 12:18 Active IV Insertion STAT Care 01/06/21 12:18 Active Pulse Oximetry (ED) STAT Care 01/06/21 12:18 Active CHEST 1 VIEW (PORTABLE) Stat Exams 01/06/21 12:18 Completed CBC W DIFF Stat Lab 01/06/21 12:35 Completed CMP Stat Lab 01/06/21 12:35 Completed D-DIMER QUANTITATIVE Stat Lab 01/06/21 12:35 Completed Manual Differential NC Stat Lab 01/06/21 12:35 Completed NT PRO BNP Stat Lab 01/06/21 12:35 Completed PROTIME WITH INR Stat Lab 01/06/21 12:35 Completed TROPONIN Q3H Lab 01/06/21 12:35 Completed TROPONIN Q3H Lab 01/06/21 15:30 Ordered TROPONIN Q3H Lab 01/06/21 18:30 Ordered TROPONIN Q3H Lab 01/06/21 21:30 Ordered TROPONIN Q3H Lab 01/07/21 00:30 Ordered Respiratory Therapy Assessment DAILY RT 01/06/21 12:32 Active Medication Summary Discontinued Medications Generic Name Dose Route Start Last Admin Trade Name Eitanq PRN Reason Stop Dose Admin Albuterol Sulfate 2.5 mg 01/06/21 12:19 01/06/21 12:24 Proventil 2.5 Mg/3 Ml Neb IH 01/06/21 12:20 2.5 mg STAT ONE Administration Albuterol Sulfate Confirm 01/06/21 12:22 Proventil 2.5 Mg/3 Ml Neb Administered 01/06/21 12:23 Dose 2.5 mg IH .STK-MED ONE Aspirin 324 mg 01/06/21 12:11 01/06/21 12:27 Baby Aspirin 81 Mg Chew PO 01/06/21 12:12 324 mg STAT ONE Administration Aspirin Confirm 01/06/21 12:25 Baby Aspirin 81 Mg Chew Administered 01/06/21 12:26 Dose 324 mg .ROUTE .STK-MED ONE Methylprednisolone Sodium Succinate 80 mg 01/06/21 12:21 01/06/21 12:28 Solu-Medrol 40 Mg IV 01/06/21 12:22 80 mg STAT ONE Administration Methylprednisolone Sodium Succinate Confirm 01/06/21 12:25 Solu-Medrol Administered 01/06/21 12:26 Dose 125 mg .ROUTE .STK-MED ONE Morphine Sulfate 4 mg 01/06/21 12:58 01/06/21 13:03 Morphine Sulfate 4 Mg Inj IV 01/06/21 12:59 4 mg STAT ONE Administration Morphine Sulfate Confirm 01/06/21 13:00 Morphine Sulfate 4 Mg Inj Administered 01/06/21 13:01 Dose 4 mg .ROUTE .STK-MED ONE Ondansetron HCl 4 mg 01/06/21 12:58 01/06/21 13:02 Zofran 4 Mg/2 Ml Vial IV 01/06/21 12:59 4 mg STAT ONE Administration Ondansetron HCl Confirm 01/06/21 13:00 Zofran 4 Mg/2 Ml Vial Administered 01/06/21 13:01 Dose 4 mg .ROUTE .STK-MED ONE Sterile Water Confirm 01/06/21 12:25 Sterile H2o 10 Ml Administered 01/06/21 12:26 Dose 10 ml IJ .STK-MED ONE Lab/Rad Data: Laboratory Result Diagrams 01/06/21 12:35 01/06/21 12:35 Laboratory Results 01/06/21 01/06/21 01/06/21 Range/Units 12:35 12:35 12:35 WBC (4.0-10.5) K/mm3 RBC (4.1-5.4) M/mm3 Hgb (12.0-16.0) gm/dl Hct (35-47) % MCV (78-100) fl MCH (26-32) pg MCHC (32-36) g/dl RDW (11.5-14.0) % Plt Count (150-450) K/mm3 MPV (7.5-11.0) fl Absolute Granulocytes (1.4-6.9) Segmented Neutrophils (36.0-66.0) % Band Neutrophils (0.0-2.0) % Lymphocytes (Manual) (24-44) % Monocytes (Manual) (0.0-12.0) % Platelet Estimate (NORMAL) RBC Morphology PT 12.8 H (9.4-12.5) SECONDS INR 1.08 (0.8-3.0) D-Dimer 343 (215-500) ng/mL Sodium 137 (137-145) mmol/L Potassium 4.2 (3.5-5.1) mmol/L Chloride 101 (98-107) mmol/L Carbon Dioxide 27 (22-30) mmol/L Anion Gap 13.1 (5-15) MEQ/L BUN 11 (7-17) mg/dL Creatinine 0.57 (0.52-1.04) mg/dL Estimated GFR > 60.0 ML/MIN Glucose 125 H (74-106) mg/dL Calcium 9.5 (8.4-10.2) mg/dL Total Bilirubin 0.20 (0.2-1.3) mg/dL AST 35 (14-36) U/L ALT 26 (0-35) U/L Alkaline Phosphatase 83 (38-126) U/L Troponin I < 0.012 (0.000-0.034) ng/mL NT-Pro-B Natriuret Pep 49.3 (0-450) pg/mL Serum Total Protein 7.2 (6.3-8.2) g/dL Albumin 4.3 (3.5-5.0) g/dL 01/06/21 Range/Units 12:35 WBC 10.2 (4.0-10.5) K/mm3 RBC 4.34 (4.1-5.4) M/mm3 Hgb 13.1 (12.0-16.0) gm/dl Hct 41.1 (35-47) % MCV 94.7 (78-100) fl MCH 30.2 (26-32) pg MCHC 31.9 L (32-36) g/dl RDW 12.8 (11.5-14.0) % Plt Count 222 (150-450) K/mm3 MPV 10.2 (7.5-11.0) fl Absolute Granulocytes 7.14 H (1.4-6.9) Segmented Neutrophils 65 (36.0-66.0) % Band Neutrophils 5 H (0.0-2.0) % Lymphocytes (Manual) 23 L (24-44) % Monocytes (Manual) 7 (0.0-12.0) % Platelet Estimate NORMAL (NORMAL) RBC Morphology NORMAL PT (9.4-12.5) SECONDS INR (0.8-3.0) D-Dimer (215-500) ng/mL Sodium (137-145) mmol/L Potassium (3.5-5.1) mmol/L Chloride (98-107) mmol/L Carbon Dioxide (22-30) mmol/L Anion Gap (5-15) MEQ/L BUN (7-17) mg/dL Creatinine (0.52-1.04) mg/dL Estimated GFR ML/MIN Glucose (74-106) mg/dL Calcium (8.4-10.2) mg/dL Total Bilirubin (0.2-1.3) mg/dL AST (14-36) U/L ALT (0-35) U/L Alkaline Phosphatase (38-126) U/L Troponin I (0.000-0.034) ng/mL NT-Pro-B Natriuret Pep (0-450) pg/mL Serum Total Protein (6.3-8.2) g/dL Albumin (3.5-5.0) g/dL - Progress Progress: improved, re-examined Air Movement: good Progress Note: 01/06/21 12:47 Chest x-ray shows no acute cardiopulmonary process 01/06/21 13:21 Medical decision making: This patient appears to have bronchitis. Her coughing is initiating the chest pain that she is experiencing. Her troponin level, electrolyte levels and D-dimer levels are within normal limits. Her chest x-ray does not show any acute cardiopulmonary process. We will discharge her to home with a prescription for Tessalon Perles, prednisone as well as albuterol nebulizer vials. Blood Culture(s) Obtained: No Antibiotics given: No - Departure Departure Disposition: Home Clinical Impression: Bronchitis Condition: Stable Critical Care Time: No Referrals: PHUONG ABDULLAHI [ACTIVE STAFF] - Additional Instructions: Stop smoking. Avoid any exposure to smoke. Take the new prednisone prescript ion as prescribed. May resume your other steroids once you complete the new prednisone prescription. Follow-up with your primary care physician for persistent symptoms. Prescriptions: Prednisone 10 mg [Deltasone 10 mg] 10 mg PO TID #12 tablet Albuterol 2.5 mg/3 ml Neb [Proventil 2.5 mg/3 ml Neb] 2.5 mg IH Q6H #25 neb Benzonatate [Tessalon Perle] 200 mg PO TID #12 capsule
[2021-01-06] MEDS ORDERED: BABY ASPIRIN 81 MG CHEW PO ONE (12:11)
[2021-01-06] MEDS ORDERED: PROVENTIL 2.5 MG/3 ML NEB IH ONE ×2 (12:19→12:22)
[2021-01-06] MEDS ORDERED: solu-MEDROL 40 MG IV ONE (12:21)
[2021-01-06] MEDS ORDERED: BABY ASPIRIN 81 MG CHEW ONE (12:25)
[2021-01-06] MEDS ORDERED: solu-MEDROL ONE (12:25)
[2021-01-06] MEDS ORDERED: Sterile H2O 10 ml IJ ONE (12:25)
[2021-01-06 12:39] LABS: Hematocrit 41.1 % (35-47); Hemoglobin 13.1 gm/dl (12.0-16.0); Mean Cell Volume 94.7 fl (78-100); Mean Corpuscular Hemoglobin 30.2 pg (26-32); Mean Corpuscular Hgb Concent. 31.9 g/dl (32-36); Mean Platelet Volume 10.2 fl (7.5-11.0); Platelet Count 222 K/mm3 (150-450); Red Blood Count 4.34 M/mm3 (4.1-5.4); Red Cell Distribution Width 12.8 % (11.5-14.0); White Blood Count 10.2 K/mm3 (4.0-10.5)
--- NOTE | 2021-01-06 12:39 | XRAY ---
Indication: Cough. Short of breath. Comparison: None Portable chest demonstrates normal heart and lungs. Bony thorax intact.
[2021-01-06 12:48] LABS: INR 1.08 (0.8-3.0); PROTIME 12.8 SECONDS (9.4-12.5)
[2021-01-06] MEDS ORDERED: Zofran 4 MG/2 ML VIAL IV ONE (12:58)
[2021-01-06] MEDS ORDERED: MORPHINE SULFATE 4 MG INJ IV ONE (12:58)
[2021-01-06] MEDS ORDERED: MORPHINE SULFATE 4 MG INJ ONE (13:00)
[2021-01-06] MEDS ORDERED: Zofran 4 MG/2 ML VIAL ONE (13:00)
[2021-01-06 13:01] LABS: BAND 5 % (0.0-2.0); Lymphocytes 23 % (24-44); Monocyte 7 % (0.0-12.0); Neutrophils 65 % (36.0-66.0); Total Cells Counted 100
[2021-01-06 13:02] LABS: Platelet Estimate NORMAL (NORMAL)
[2021-01-06 13:03] LABS: Absolute Neutrophil Ct (ANC) 7.14 (1.4-6.9)
[2021-01-06 13:04] LABS: ALBUMIN 4.3 g/dL (3.5-5.0); ALKALINE PHOSPHATASE 83 U/L (38-126); ANION GAP 13.1 MEQ/L (5-15); BLOOD UREA NITROGEN 11 mg/dL (7-17); CHLORIDE 101 mmol/L (98-107); Calcium 9.5 mg/dL (8.4-10.2); Carbon Dioxide 27 mmol/L (22-30); Creatinine 1 0.57 mg/dL (0.52-1.04); EST GLOMERULAR FILTRATION RATE > 60.0 ML/MIN; Glucose 125 mg/dL (74-106); NT PRO BNP 49.3 pg/mL (0-450); Potassium 4.2 mmol/L (3.5-5.1); SGOT/AST 35 U/L (14-36); SGPT/ALT 26 U/L (0-35); SODIUM 137 mmol/L (137-145); Total Protein 7.2 g/dL (6.3-8.2)
[2021-01-06 13:21] VITALS: BP 123/72; PULSE 104; O2SAT 92
== END 2021-01-06 13:32 | disposition home or self-care (01) ==
LOC: ED 11:55
DX: J40 Bronchitis, not specified as acute or chronic (principal); R07.9 Chest pain, unspecified; R05 Cough; Z79.899 Other long term (current) drug therapy
CPT/HCPCS: 36000; 36415; 71045; 80053; 83880; 84484; 85025; 85379; 85610; 93005; 93041; 94760; 96374; 96375; 99284; J2270; J2405; J2920; J2930; J7609; A9270-GY

== ENCOUNTER 2021-05-03 10:32 | Day surgery (SDC) | payer OTHER ==
[2021-05-03] MEDS ORDERED: LIDOCAINE HCL 2% 100 MG/5 ML IJ ONE (10:33)
[2021-05-03] MEDS ORDERED: DIPRIVAN 200 MG/20 ML IV ONE (13:11)
[2021-05-03] MEDS ORDERED: Lactated Ringers 1,000 ML IV ONE (14:06)
--- NOTE | 2021-05-03 14:07 | XRAY ---
Indication: Bilateral L4-S1 MBB. Intraoperative fluoroscopy provided for 18 seconds. Single digital spot image submitted for interpretation demonstrates posterior needle tips projecting over the expected left and right L4-S1 nerve roots. Correlate with intraoperative findings/report.
--- NOTE | 2021-05-03 14:10 | XRAY ---
18 seconds fluoroscopy time in surgery for bilateral L4-S1 MBB.
== END 2021-05-03 13:45 | disposition home or self-care (01) ==
LOC: SDC-PAIN 10:32
PROVIDERS: ATTEND Psychiatry & Neurology Pain Medicine
DX: M47.816 Spondylosis without myelopathy or radiculopathy, lumbar region (principal); Z79.899 Other long term (current) drug therapy
CPT/HCPCS: 64493; 64494; 72020; 77002; J2704

== ENCOUNTER 2021-06-15 14:27 | Day surgery (SDC) | payer OTHER ==
[2021-06-15] MEDS ORDERED: BUPIVACAINE 0.5% VIAL IJ ONE (14:28)
[2021-06-15] MEDS ORDERED: Lactated Ringers 1,000 ML IV ONE (15:17)
[2021-06-15] MEDS ORDERED: DIPRIVAN 200 MG/20 ML IV ONE (15:23)
--- NOTE | 2021-06-15 17:05 | XRAY ---
Indication: Bilateral L4-S1 MBB. Intraoperative fluoroscopy provided for 15 seconds. Single digital spot image submitted for interpretation demonstrates posterior needle tips projecting over the expected left and right L4-S1 nerve roots. Correlate with intraoperative findings/report.
--- NOTE | 2021-06-15 17:08 | XRAY ---
15 seconds of fluoroscopy was used in surgery for a bilateral L4-S1 MBB.
== END 2021-06-15 15:45 | disposition home or self-care (01) ==
LOC: SDC-PAIN 14:27
PROVIDERS: ATTEND Psychiatry & Neurology Pain Medicine
DX: M47.816 Spondylosis without myelopathy or radiculopathy, lumbar region (principal); I10 Essential (primary) hypertension; Z79.899 Other long term (current) drug therapy
CPT/HCPCS: 64493; 64494; 72020; 77002; J2704

== ENCOUNTER 2021-07-26 06:57 | Day surgery (SDC) | payer OTHER | END 2021-07-26 07:10 | disposition home or self-care (01) | LOC: SDC-PAIN 06:57 | PROVIDERS: ATTEND Psychiatry & Neurology Pain Medicine | DX: Z53.9 Procedure and treatment not carried out, unspecified reason (principal) ==

== ENCOUNTER 2021-11-01 08:49 | Emergency (ER) | payer OTHER ==
--- NOTE | 2021-11-01 09:16 | XRAY ---
Indication: Right chest pain. Dyspnea. Comparison: January 06, 2021. Portable chest less inflated with new bibasilar subsegmental atelectasis, right greater than left. Remaining heart, upper lungs, and bony thorax unremarkable.
[2021-11-01] MEDS ORDERED: PROVENTIL 2.5 MG/3 ML NEB IH ONE ×2 (09:23→09:28)
[2021-11-01 09:25] LABS: Absolute Neutrophil Ct (ANC) 17.94 (1.4-6.9); Basophil (Absolute #) 0.11 (0-0.4); Eosinophil % 0.3 % (0.00-5.0); Eosinophil (Absolute #) 0.06 (0-0.5); Hematocrit 43.8 % (35-47); Hemoglobin 14.1 gm/dl (12.0-16.0); Lymphocyte (Absolute #) 3.86 (1.0-4.6); Lymphocytes % 16.5 % (24.0-44.0); Mean Cell Volume 90.9 fl (78-100); Mean Corpuscular Hemoglobin 29.3 pg (26-32); Mean Corpuscular Hgb Concent. 32.2 g/dl (32-36); Mean Platelet Volume 10.3 fl (7.5-11.0); Monocyte (Absolute #) 1.41 (0.0-1.3); Neutrophil % 76.7 % (36.0-66.0); Platelet Count 278 K/mm3 (150-450); Red Blood Count 4.82 M/mm3 (4.1-5.4); Red Cell Distribution Width 14.7 % (11.5-14.0); White Blood Count 23.4 K/mm3 (4.0-10.5)
[2021-11-01 09:27] LABS: INR 1.14 (0.8-3.0); PROTIME 13.4 SECONDS (9.4-12.5)
[2021-11-01 09:29] LABS: PTT 26.8 SECONDS (25.1-36.5)
--- NOTE | 2021-11-01 09:33 | ERPHSYRPT ---
- History of Present Illness Source: patient, EMS Exam Limitations: no limitations Patient Subjective Stated Complaint: Pt states "I had a brain tumor removed on 09/20, I do weekly radiation and I have been short of breath since last night. I had radiation yesterday at [facility]." Triage Nursing Assessment: PT presetned alert and oriented X 3, skin pwd Pt able to speak in two to three word sentences pt tachypneic and grunting, pt guarding her right side. PT unable to sit still. Physician History: 46 yo wf who was on the way to [facility] per [facility] ambulance service reversed course [facility] [facility] because she became more dyspneic. Pt has a h/o glioblastoma removed in [facility] on 09/20 and has had radiation postop, along w a chemo pill she started last night. She became dyspneic last night at around midnight and has a mild nonproductive cough. Fever/chills/N/V/D/melena/hematochezia are all denied. She has some R lateral chest pain which appears to be worse w deep breaths. Timing/Duration: other (Midnight) Severity of Dyspnea-Max: moderate Severity of Dyspnea-Current: mild (W 2L O2 NC) Possible Cause: occasional episodes Modifying Factors: Improves With: activity Associated Symptoms: edema, ankle swelling, No chest pain/discomfort, No fever, No insomnia, No loss of appetite, No lightheadedness, No wheezing, No weakness, No chills, No hemoptysis, No calf pain, No dizziness, No heaviness, No heart racing, No lightheadedness, No leg swelling, No muscle spasms feet, No muscle spasms hands, No painful breathing, No productive cough, No sweating, No tight ness, No tingling face, No tingling hands Allergies/Adverse Reactions: cephalexin [From Keflex] Allergy (Verified 01/06/21 12:08) codeine Allergy (Verified 01/06/21 12:08) latex Allergy (Verified 01/06/21 12:08) Penicillins Allergy (Verified 01/06/21 12:08) Home Medications: Acetaminophen [Tylenol Arthritis] 650 mg PO DAILY PRN PRN 05/07/20 [History] Adalimumab [Humira(Cf) Pen] 40 mg IJ WEEKLY 05/07/20 [History] Ascorbic Acid [Vitamin C] 1,000 mg PO DAILY 05/07/20 [History] Biotin [Mark Anthony Biotin] 10,000 mcg PO DAILY 05/07/20 [History] Buspirone HCl [Buspar] 15 mg PO TID 05/07/20 [History] Calcium Carb,Gluc/Mag Ox,Gluc [Calcium Magnesium Caplet] 1 tab PO DAILY 05/07/20 [History] Cholecalciferol (Vitamin D3) [D3 Dots] 125 mcg PO DAILY 05/07/20 [History] Cimetidine 200 mg PO DAILY PRN PRN 05/07/20 [History] Duloxetine HCl 30 mg PO BID 05/07/20 [History] Etodolac 400 mg [Lodine 400 mg] 400 mg PO BID 05/07/20 [History] Folic Acid 1 mg PO DAILY 05/07/20 [History] Hydroxychloroquine Sulfate 200 mg PO BID 05/07/20 [History] Lisinopril 10 mg [Zestril 10 MG] 10 mg PO DAILY 05/07/20 [History] Loratadine/Pseudoephedrine [Claritin-D 12 Hour Tablet] 1 tab PO BID 05/07/20 [History] Montelukast Sodium 10 mg [Singulair 10 MG] 10 mg PO DAILY 05/07/20 [History] Multivit-Min/Iron/Folic/Lutein [Multivitamin Women 50 Plus Tab] 1 tab PO DAILY 05/07/20 [History] Pantoprazole 20 mg [Protonix 20MG Tablet] 40 mg PO DAILY 05/07/20 [History] diphenhydrAMINE HCL [Benadryl] 25 mg PO DAILY PRN PRN 05/07/20 [History] estradioL [Estradiol] 2 mg PO DAILY 05/07/20 [History] hydrOXYzine HCL [Hydroxyzine HCl] 25 mg PO TID 05/07/20 [History] Tremozolomide 180 mg PO HS 11/01/21 [History] Hx Tetanus, Diphtheria Vaccination/Date Given: No Hx Influenza Vaccination/Date Given: Yes Hx Pneumococcal Vaccination/Date Given: No Immunizations Up to Date: Yes Travel Risk - International Travel Have you traveled outside of the country in past 3 weeks: No - Coronavirus Screening Are you exhibiting any of the following symptoms?: No Close contact with a COVID-19 positive Pt in past 14-21 Days: No - Vaccine Status Have you recieved a Covid-19 vaccination: Yes Fitness Services Manager: Moderna - Vaccination Dates Date of 2cond Vaccination (if applicable): 11/04/20 - Review of Systems Constitutional: No Symptoms Eyes: No Symptoms Ears, Nose, & Throat: No Symptoms Respiratory: No Symptoms, Cough, Dyspnea Cardiac: No Symptoms Abdominal/Gastrointestinal: No Symptoms Genitourinary Symptoms: No Symptoms Musculoskeletal: No Symptoms Skin: No Symptoms Neurological: No Symptoms Psychological: No Symptoms Endocrine: No Symptoms Hematologic/Lymphatic: No Symptoms Immunological/Allergic: No Symptoms - Past Medical History Pertinent Past Medical History: Yes Neurological History: Migraines, Other Cardiac History: Hypertension Respiratory History: Asthma, Pneumonia Endocrine Medical History: No Pertinent History Musculoskeletal History: Fibromyalgia, Osteoarthritis, Rheumatoid Arthritis GI Medical History: Gallbladder Disease, Pancreatitis Psycho-Social History: Anxiety, Depression Female Reproductive Disorders: Abnormal Uterine Bleeding, Endometriosis, Menstrual Problems Other Medical History: SX HX: CHOLESTECTOMY, RONN, - Past Surgical History Past Surgical History: Yes Neuro Surgical History: No Pertinent History Cardiac: No Pertinent History Respiratory: No Pertinent History Gastrointestinal: Cholecystectomy, Exploratory Laparoscopy Genitourinary: No Pertinent History Musculoskeletal: No Pertinent History Female Surgical History: Hysterectomy - Social History Smoking Status: Current every day smoker How long have you smoked: years Exposure to second hand smoke: Yes Drug Use: none Patient Lives Alone: No - Female History Hx Last Menstrual Period: 25 years ago, hysterectomy Hx Now: No - Nursing Vital Signs Nursing Vital Signs: Initial Vital Signs Temperature 97.5 F 11/01/21 08:51 Pulse Rate 135 H 11/01/21 08:51 Respiratory Rate 26 H 11/01/21 08:51 Blood Pressure 153/120 11/01/21 08:51 O2 Sat by Pulse Oximetry 98 11/01/21 08:51 Pain Scale Pain Intensity 0 Tachy/Hypertensive/Tachypneic - Physical Exam General Appearance: mild distress (Pt w good sats but dyspneic and tachycardic/Good airway) Eye Exam: PERRL/EOMI, eyes nml inspection Ears, Nose, Throat Exam: hearing grossly normal, normal ENT inspection, normal pharynx Neck Exam: normal inspection, supple, full range of motion, No Brudzinski, No Kernig's, No meningismus, No carotid bruit Respiratory Exam: airway intact, diminished breath sounds (Decreased BS bases B) Cardiovascular/Chest Exam: tachycardia, No murmur Abdominal/Gastrointestinal Exam: soft, normal bowel sounds, No tenderness Rectal Exam: deferred Extremity Exam: pedal edema Neurologic Exam: alert, oriented x 3, cooperative, academic support director II-XII nml as tested, normal mood/affect Skin Exam: normal color Lymphatic Exam: No adenopathy SpO2 Interpretation: normal (On 2L O2 NC) SpO2: 95 O2 Delivery: Room Air - Course Nursing assessment & vital signs reviewed: Yes EKG Interpreted by Me: RATE (Sinus Tach/R133/Normal QT-QTc/Poor R wave progression vs Low voltage) - Radiology Exams Chest X-ray Interpretation: Discussed w/ radiologist (Bibasilar atelectasis) - CT Exams Chest CT Interpretation: Discussed w/radiologist (No PE/RLL infiltrate w small effusion) Ordered Tests: Active Orders 24 hr Category Date Time Status EKG-ER Only STAT Care 11/01/21 08:56 Completed IV Insertion STAT Care 11/01/21 08:56 Completed CHEST 1 VIEW (PORTABLE) Stat Exams 11/01/21 08:56 Completed CHEST WITH CONTRAST [CT] Stat Exams 11/01/21 10:07 Completed BLOOD CULTURE Stat Lab 11/01/21 11:47 Received CBC W DIFF Stat Lab 11/01/21 09:15 Completed CMP Stat Lab 11/01/21 09:15 Completed CULTURE,URINE Stat Lab 11/01/21 10:01 Received D-DIMER QUANTITATIVE Stat Lab 11/01/21 09:25 Completed Lactic Acid Stat Lab 11/01/21 09:17 Completed Lactic Acid Stat Lab 11/01/21 11:20 Completed Manual Differential NC Stat Lab 11/01/21 09:15 Completed NT PRO BNP Stat Lab 11/01/21 09:15 Completed PROTIME WITH INR Stat Lab 11/01/21 09:15 Completed PTT Stat Lab 11/01/21 09:15 Completed TROPONIN Q3H Lab 11/01/21 09:30 Completed TROPONIN Q3H Lab 11/01/21 11:47 Completed UA W/RFX CULTURE Stat Lab 11/01/21 10:01 Completed Respiratory Therapy Assessment DAILY RT 11/01/21 09:33 Completed Medication Summary Discontinued Medications Generic Name Dose Route Start Last Admin Trade Name Freq PRN Reason Stop Dose Admin Albuterol Sulfate 2.5 mg 11/01/21 09:23 11/01/21 09:31 Albuterol Sulfate 2.5 Mg/3 Ml Neb IH 11/01/21 09:24 2.5 mg STAT ONE Administration Albuterol Sulfate Confirm 11/01/21 09:28 Albuterol Sulfate 2.5 Mg/3 Ml Neb Administered 11/01/21 09:29 Dose 2.5 mg IH .STK-MED ONE Fentanyl Citrate 25 mcg 11/01/21 11:08 11/01/21 11:51 Fentanyl Citrate 100 Mcg/2 Ml* Vial IV 11/01/21 11:09 25 mcg STAT ONE Administration Fentanyl Citrate Confirm 11/01/21 11:10 Fentanyl Citrate 100 Mcg/2 Ml* Vial Administered 11/01/21 11:11 Dose 100 mcg .ROUTE .STK-MED ONE Fentanyl Citrate Confirm 11/01/21 11:50 Fentanyl Citrate 100 Mcg/2 Ml* Vial Administered 11/01/21 11:51 Dose 100 mcg .ROUTE .STK-MED ONE Sodium Chloride 1,000 mls @ 999 mls/hr 11/01/21 10:23 11/01/21 11:42 Sodium Chloride 0.9% 1000 Ml IV 11/01/21 11:23 Infused .Q1H1M STA Infusion Meropenem 1 g/ Sodium Chloride 100 mls @ 200 mls/hr 11/01/21 10:24 11/01/21 10:29 IV 11/01/21 10:53 200 mls/hr STAT ONE Administration Sodium Chloride Confirm 11/01/21 10:27 Sodium Chloride 100ml Mini-Bag Plus Administered 11/01/21 10:28 Dose 100 mls @ ud IV .STK-MED ONE Sodium Chloride Confirm 11/01/21 10:28 Sodium Chloride 0.9% 1000 Ml Administered 11/01/21 10:29 Dose 1,000 mls @ ud .ROUTE .STK-MED ONE Sodium Chloride 1,000 mls @ 999 mls/hr 11/01/21 12:37 11/01/21 12:39 Sodium Chloride 0.9% 1000 Ml IV 11/01/21 13:37 999 mls/hr .Q1H1M STA Administration Sodium Chloride Confirm 11/01/21 12:38 Sodium Chloride 0.9% 1000 Ml Administered 11/01/21 12:39 Dose 1,000 mls @ ud .ROUTE .STK-MED ONE Meropenem Confirm 11/01/21 10:27 Meropenem 1 Gm Vial Administered 11/01/21 10:28 Dose 1 g IV .STK-MED ONE Morphine Sulfate 2 mg 11/01/21 10:40 11/01/21 10:46 Morphine Sulfate 2 Mg/Ml Inj IV 11/01/21 10:41 2 mg STAT ONE Administration Morphine Sulfate Confirm 11/01/21 10:41 Morphine Sulfate 2 Mg/Ml Inj Administered 11/01/21 10:42 Dose 2 mg .ROUTE .STK-MED ONE Ondansetron HCl 4 mg 11/01/21 10:40 11/01/21 10:45 Ondansetron Hcl 4 Mg/2 Ml Vial IV 11/01/21 10:41 4 mg STAT ONE Administration Ondansetron HCl Confirm 11/01/21 10:41 Ondansetron Hcl 4 Mg/2 Ml Vial Administered 11/01/21 10:42 Dose 4 mg .ROUTE .STK-MED ONE Lab/Rad Data: Laboratory Result Diagrams 11/01/21 09:15 11/01/21 09:15 Laboratory Results 11/01/21 11/01/21 11/01/21 Range/Units 11:47 11:20 10:05 WBC (4.0-10.5) K/mm3 RBC (4.1-5.4) M/mm3 Hgb (12.0-16.0) gm/dl Hct (35-47) % MCV (78-100) fl MCH (26-32) pg MCHC (32-36) g/dl RDW (11.5-14.0) % Plt Count (150-450) K/mm3 MPV (7.5-11.0) fl Gran % (36.0-66.0) % Eos # (Auto) (0-0.5) Absolute Lymphs (auto) (1.0-4.6) Absolute Monos (auto) (0.0-1.3) Lymphocytes % (24.0-44.0) % Monocytes % (0.0-12.0) % Eosinophils % (0.00-5.0) % Basophils % (0.0-0.4) % Absolute Granulocytes (1.4-6.9) Segmented Neutrophils (36.0-66.0) % Lymphocytes (Manual) (24-44) % Monocytes (Manual) (0.0-12.0) % Basophils # (0-0.4) Platelet Estimate (NORMAL) RBC Morphology Anisocytosis PT (9.4-12.5) SECONDS INR (0.8-3.0) APTT (25.1-36.5) SECONDS D-Dimer (215-500) ng/mL Sodium (137-145) mmol/L Potassium (3.5-5.1) mmol/L Chloride (98-107) mmol/L Carbon Dioxide (22-30) mmol/L Anion Gap (5-15) MEQ/L BUN (7-17) mg/dL Creatinine (0.52-1.04) mg/dL Estimated GFR ML/MIN Glucose (74-106) mg/dL Lactic Acid 2.9 H (0.4-2.0) Calcium (8.4-10.2) mg/dL Total Bilirubin (0.2-1.3) mg/dL AST (14-36) U/L ALT (0-35) U/L Alkaline Phosphatase (38-126) U/L Troponin I < 0.012 (0.000-0.034) ng/mL NT-Pro-B Natriuret Pep (0-450) pg/mL Serum Total Protein (6.3-8.2) g/dL Albumin (3.5-5.0) g/dL Urinalys Dipstick Clnc Urine Color (YELLOW) Urine Appearance (CLEAR) Urine pH (5-6) Ur Specific [place] (1.005-1.025) POC Urine Protein Conf (Negative) Urine Ketones (NEGATIVE) Urine Nitrite (NEGATIVE) Urine Bilirubin (NEGATIVE) Urine Urobilinogen (0-1) mg/dL Urine Leukocytes (NEGATIVE) Urine WBC (Auto) (0-5) /HPF Urine RBC (Auto) (0-2) /HPF U Epithel Cells (Auto) (FEW) /HPF Urine Bacteria (Auto) (NEGATIVE) /HPF Urine RBC (0-5) Christiano/ul Urine Mucus (Auto) (NEGATIVE) /HPF Ur Culture Indicated? Urine Glucose (NEGATIVE) mg/dL Influenza Type A Ag NEGATIVE (NEGATIVE) Influenza Type B Ag NEGATIVE (NEGATIVE) RSV (PCR) NEGATIVE (Negative) SARS-CoV-2 (PCR) NEGATIVE (NEGATIVE) 11/01/21 11/01/21 11/01/21 Range/Units 10:01 09:30 09:25 WBC (4.0-10.5) K/mm3 RBC (4.1-5.4) M/mm3 Hgb (12.0-16.0) gm/dl Hct (35-47) % MCV (78-100) fl MCH (26-32) pg MCHC (32-36) g/dl RDW (11.5-14.0) % Plt Count (150-450) K/mm3 MPV (7.5-11.0) fl Gran % (36.0-66.0) % Eos # (Auto) (0-0.5) Absolute Lymphs (auto) (1.0-4.6) Absolute Monos (auto) (0.0-1.3) Lymphocytes % (24.0-44.0) % Monocytes % (0.0-12.0) % Eosinophils % (0.00-5.0) % Basophils % (0.0-0.4) % Absolute Granulocytes (1.4-6.9) Segmented Neutrophils (36.0-66.0) % Lymphocytes (Manual) (24-44) % Monocytes (Manual) (0.0-12.0) % Basophils # (0-0.4) Platelet Estimate (NORMAL) RBC Morphology Anisocytosis PT (9.4-12.5) SECONDS INR (0.8-3.0) APTT (25.1-36.5) SECONDS D-Dimer 1346 H* (215-500) ng/mL Sodium (137-145) mmol/L Potassium (3.5-5.1) mmol/L Chloride (98-107) mmol/L Carbon Dioxide (22-30) mmol/L Anion Gap (5-15) MEQ/L BUN (7-17) mg/dL Creatinine (0.52-1.04) mg/dL Estimated GFR ML/MIN Glucose (74-106) mg/dL Lactic Acid (0.4-2.0) Calcium (8.4-10.2) mg/dL Total Bilirubin (0.2-1.3) mg/dL AST (14-36) U/L ALT (0-35) U/L Alkaline Phosphatase (38-126) U/L Troponin I < 0.012 (0.000-0.034) ng/mL NT-Pro-B Natriuret Pep (0-450) pg/mL Serum Total Protein (6.3-8.2) g/dL Albumin (3.5-5.0) g/dL Urinalys Dipstick Clnc MAIN LAB Urine Color JULIUS (YELLOW) Urine Appearance SLIGHTLY CLOUDY (CLEAR) Urine pH 5.5 (5-6) Ur Specific [place] 1.030 (1.005-1.025) POC Urine Protein Conf 30 (Negative) Urine Ketones NEGATIVE (NEGATIVE) Urine Nitrite NEGATIVE (NEGATIVE) Urine Bilirubin SMALL (NEGATIVE) Urine Urobilinogen 1 (0-1) mg/dL Urine Leukocytes NEGATIVE (NEGATIVE) Urine WBC (Auto) 3-5 (0-5) /HPF Urine RBC (Auto) 26-50 (0-2) /HPF U Epithel Cells (Auto) RARE (FEW) /HPF Urine Bacteria (Auto) MODERATE (NEGATIVE) /HPF Urine RBC SMALL (0-5) Christiano/ul Urine Mucus (Auto) MANY (NEGATIVE) /HPF Ur Culture Indicated? YES Urine Glucose NEGATIVE (NEGATIVE) mg/dL Influenza Type A Ag (NEGATIVE) Influenza Type B Ag (NEGATIVE) RSV (PCR) (Negative) SARS-CoV-2 (PCR) (NEGATIVE) 11/01/21 11/01/21 11/01/21 Range/Units 09:17 09:15 09:15 WBC (4.0-10.5) K/mm3 RBC (4.1-5.4) M/mm3 Hgb (12.0-16.0) gm/dl Hct (35-47) % MCV (78-100) fl MCH (26-32) pg MCHC (32-36) g/dl RDW (11.5-14.0) % Plt Count (150-450) K/mm3 MPV (7.5-11.0) fl Gran % (36.0-66.0) % Eos # (Auto) (0-0.5) Absolute Lymphs (auto) (1.0-4.6) Absolute Monos (auto) (0.0-1.3) Lymphocytes % (24.0-44.0) % Monocytes % (0.0-12.0) % Eosinophils % (0.00-5.0) % Basophils % (0.0-0.4) % Absolute Granulocytes (1.4-6.9) Segmented Neutrophils (36.0-66.0) % Lymphocytes (Manual) (24-44) % Monocytes (Manual) (0.0-12.0) % Basophils # (0-0.4) Platelet Estimate (NORMAL) RBC Morphology Anisocytosis PT 13.4 H (9.4-12.5) SECONDS INR 1.14 (0.8-3.0) APTT 26.8 (25.1-36.5) SECONDS D-Dimer (215-500) ng/mL Sodium 138 (137-145) mmol/L Potassium 4.3 (3.5-5.1) mmol/L Chloride 103 (98-107) mmol/L Carbon Dioxide 19 L (22-30) mmol/L Anion Gap 20.2 H (5-15) MEQ/L BUN 20 H (7-17) mg/dL Creatinine 0.47 L (0.52-1.04) mg/dL Estimated GFR > 60.0 ML/MIN Glucose 189 H (74-106) mg/dL Lactic Acid 2.7 H (0.4-2.0) Calcium 9.4 (8.4-10.2) mg/dL Total Bilirubin 1.50 H (0.2-1.3) mg/dL AST 165 H (14-36) U/L ALT 139 H (0-35) U/L Alkaline Phosphatase 111 (38-126) U/L Troponin I (0.000-0.034) ng/mL NT-Pro-B Natriuret Pep 85.3 (0-450) pg/mL Serum Total Protein 7.8 (6.3-8.2) g/dL Albumin 4.5 (3.5-5.0) g/dL Urinalys Dipstick Clnc Urine Color (YELLOW) Urine Appearance (CLEAR) Urine pH (5-6) Ur Specific [place] (1.005-1.025) POC Urine Protein Conf (Negative) Urine Ketones (NEGATIVE) Urine Nitrite (NEGATIVE) Urine Bilirubin (NEGATIVE) Urine Urobilinogen (0-1) mg/dL Urine Leukocytes (NEGATIVE) Urine WBC (Auto) (0-5) /HPF Urine RBC (Auto) (0-2) /HPF U Epithel Cells (Auto) (FEW) /HPF Urine Bacteria (Auto) (NEGATIVE) /HPF Urine RBC (0-5) Christiano/ul Urine Mucus (Auto) (NEGATIVE) /HPF Ur Culture Indicated? Urine Glucose (NEGATIVE) mg/dL Influenza Type A Ag (NEGATIVE) Influenza Type B Ag (NEGATIVE) RSV (PCR) (Negative) SARS-CoV-2 (PCR) (NEGATIVE) 11/01/21 Range/Units 09:15 WBC 23.4 H (4.0-10.5) K/mm3 RBC 4.82 (4.1-5.4) M/mm3 Hgb 14.1 (12.0-16.0) gm/dl Hct 43.8 (35-47) % MCV 90.9 (78-100) fl MCH 29.3 (26-32) pg MCHC 32.2 (32-36) g/dl RDW 14.7 H (11.5-14.0) % Plt Count 278 (150-450) K/mm3 MPV 10.3 (7.5-11.0) fl Gran % 76.7 H (36.0-66.0) % Eos # (Auto) 0.06 (0-0.5) Absolute Lymphs (auto) 3.86 (1.0-4.6) Absolute Monos (auto) 1.41 H (0.0-1.3) Lymphocytes % 16.5 L (24.0-44.0) % Monocytes % 6.0 (0.0-12.0) % Eosinophils % 0.3 (0.00-5.0) % Basophils % 0.5 (0.0-0.4) % Absolute Granulocytes 17.94 H (1.4-6.9) Segmented Neutrophils 78 H (36.0-66.0) % Lymphocytes (Manual) 16 L (24-44) % Monocytes (Manual) 6 (0.0-12.0) % Basophils # 0.11 (0-0.4) Platelet Estimate NORMAL (NORMAL) RBC Morphology ABNORMAL Anisocytosis 1+ PT (9.4-12.5) SECONDS INR (0.8-3.0) APTT (25.1-36.5) SECONDS D-Dimer (215-500) ng/mL Sodium (137-145) mmol/L Potassium (3.5-5.1) mmol/L Chloride (98-107) mmol/L Carbon Dioxide (22-30) mmol/L Anion Gap (5-15) MEQ/L BUN (7-17) mg/dL Creatinine (0.52-1.04) mg/dL Estimated GFR ML/MIN Glucose (74-106) mg/dL Lactic Acid (0.4-2.0) Calcium (8.4-10.2) mg/dL Total Bilirubin (0.2-1.3) mg/dL AST (14-36) U/L ALT (0-35) U/L Alkaline Phosphatase (38-126) U/L Troponin I (0.000-0.034) ng/mL NT-Pro-B Natriuret Pep (0-450) pg/mL Serum Total Protein (6.3-8.2) g/dL Albumin (3.5-5.0) g/dL Urinalys Dipstick Clnc Urine Color (YELLOW) Urine Appearance (CLEAR) Urine pH (5-6) Ur Specific [place] (1.005-1.025) POC Urine Protein Conf (Negative) Urine Ketones (NEGATIVE) Urine Nitrite (NEGATIVE) Urine Bilirubin (NEGATIVE) Urine Urobilinogen (0-1) mg/dL Urine Leukocytes (NEGATIVE) Urine WBC (Auto) (0-5) /HPF Urine RBC (Auto) (0-2) /HPF U Epithel Cells (Auto) (FEW) /HPF Urine Bacteria (Auto) (NEGATIVE) /HPF Urine RBC (0-5) Christiano/ul Urine Mucus (Auto) (NEGATIVE) /HPF Ur Culture Indicated? Urine Glucose (NEGATIVE) mg/dL Influenza Type A Ag (NEGATIVE) Influenza Type B Ag (NEGATIVE) RSV (PCR) (Negative) SARS-CoV-2 (PCR) (NEGATIVE) - Progress Progress: improved Air Movement: good Progress Note: 11/01/21 12:15 Blood cultures x2 1L NS bolus 1gm IV Meropenem Pt wants to stay at [facility], so spoke w Dr. Macdonald who wanted to transfer pt. 11/01/21 12:[address] Hatfield at [facility] 11/01/21 15:33 1L NS bolus(#2) running upon transfer Blood Culture(s) Obtained: Yes Antibiotics given: Yes Counseled pt/family regarding: lab results, diagnosis, need for follow-up, rad results - Departure Departure Disposition: Transfer Clinical Impression: Pneumonia, Sepsis Condition: Stable Critical Care Time: Yes Critical Care Time(excluding separately billable procedures): Critical 30-74 mins Referrals: DON GATICA [Primary Care Provider] - Follow up/PCP as directed
[2021-11-01 09:41] LABS: ALBUMIN 4.5 g/dL (3.5-5.0); ALKALINE PHOSPHATASE 111 U/L (38-126); ANION GAP 20.2 MEQ/L (5-15); BLOOD UREA NITROGEN 20 mg/dL (7-17); CHLORIDE 103 mmol/L (98-107); Calcium 9.4 mg/dL (8.4-10.2); Carbon Dioxide 19 mmol/L (22-30); Creatinine 1 0.47 mg/dL (0.52-1.04); EST GLOMERULAR FILTRATION RATE > 60.0 ML/MIN; Glucose 189 mg/dL (74-106); NT PRO BNP 85.3 pg/mL (0-450); Potassium 4.3 mmol/L (3.5-5.1); SGOT/AST 165 U/L (14-36); SGPT/ALT 139 U/L (0-35); SODIUM 138 mmol/L (137-145); Total Protein 7.8 g/dL (6.3-8.2)
[2021-11-01] MEDS ORDERED: Sodium Chloride 0.9% 1000 ML 1,000 ML IV STA ×2 (10:23→12:37)
[2021-11-01] MEDS ORDERED: Merrem 1 GM 1 G in Sodium Chloride 100ML MINI-BAG PLUS 100 ML IV ONE (10:24)
[2021-11-01] MEDS ORDERED: Sodium Chloride 100ML MINI-BAG PLUS 100 ML IV ONE (10:27)
[2021-11-01] MEDS ORDERED: Merrem 1 GM IV ONE (10:27)
[2021-11-01] MEDS ORDERED: Sodium Chloride 0.9% 1000 ML 1,000 ML ONE ×2 (10:28→12:38)
[2021-11-01 10:33] LABS: Bacteria MODERATE /HPF (NEGATIVE); Epithelial Cells RARE /HPF (FEW); Mucus MANY /HPF (NEGATIVE); RBC 26-50 /HPF (0-2)
[2021-11-01 10:36] LABS: Appearance SLIGHTLY CLOUDY (CLEAR)
[2021-11-01 10:37] LABS: Bilirubin SMALL (NEGATIVE); Glucose NEGATIVE (NEGATIVE); Ketones NEGATIVE (NEGATIVE); Nitrite NEGATIVE (NEGATIVE); Ph 5.5 (5-6); Protein,Urine Dip 30 (Negative); RBC SMALL Ery/ul (0-5); Urine Cultured Indicated? YES; Urobilinogen 1 mg/dL (0-1)
[2021-11-01 10:39] LABS: Dipstick done @ ? MAIN LAB
[2021-11-01] MEDS ORDERED: MORPHINE SULFATE 2 MG INJ IV ONE (10:40)
[2021-11-01] MEDS ORDERED: Zofran 4 MG/2 ML VIAL IV ONE (10:40)
[2021-11-01] MEDS ORDERED: Zofran 4 MG/2 ML VIAL ONE (10:41)
[2021-11-01] MEDS ORDERED: MORPHINE SULFATE 2 MG INJ ONE (10:41)
[2021-11-01 10:54] LABS: INFLUENZA A NEGATIVE (NEGATIVE); INFLUENZA B NEGATIVE (NEGATIVE); RESPIRATORY SYNCTIAL VIRUS NEGATIVE (Negative); SARS-CoV-2 Xpert Express NEGATIVE (NEGATIVE)
[2021-11-01] MEDS ORDERED: SUBLIMAZE 100 MCG/2 ML IV ONE ×2 (11:08→17:09)
[2021-11-01] MEDS ORDERED: SUBLIMAZE 100 MCG/2 ML ONE ×2 (11:10→11:50)
--- NOTE | 2021-11-01 11:50 | XRAY ---
Indication: Back pain. Elevated d-dimer. Multiple contiguous axial images obtained through the chest using 100 cc Isovue 370 contrast and PE protocol. Comparison: None There is adequate opacification of the pulmonary arteries. However mild diffuse respiration artifact limits evaluation of the distal lobar and segmental branches. No obvious central pulmonary embolus. Heart not enlarged. Aorta is normal in course and caliber. No pathologic mediastinal/hilar lymphadenopathy. Lungs demonstrates small right effusion with mild right base compressive atelectasis. Right lower lobe also demonstrates patchy peripheral airspace disease anterolaterally. 4 mm indeterminant right upper lobe subpleural noncalcified nodule. Left lung demonstrates scattered subsegmental atelectasis/scarring. Incidental mild right hemidiaphragm elevation. Bony thorax intact with mild degenerative changes throughout the spine. Limited upper abdomen demonstrates diffuse fatty liver. Impression: 1. Pulmonary embolus evaluation limited by respiration artifact. No obvious central pulmonary embolus. 2. Patchy right lower lobe airspace disease with small effusion. 3. 4 mm indeterminate right upper lobe noncalcified nodule. Outside comparison studies recommended if available. If not, recommend follow-up per Fleischner guidelines.. 4. Chronic findings including right hemidiaphragm elevation, scattered subsegmental atelectasis/scarring, fatty liver, and degenerative spondylosis.
[2021-11-01 13:18] VITALS: BP 138/99; PULSE 88
[2021-11-01 14:07] LABS: Lymphocytes 16 % (24-44); Monocyte 6 % (0.0-12.0); Total Cells Counted 100
[2021-11-01 14:09] LABS: Platelet Estimate NORMAL (NORMAL)
[2021-11-01 14:10] LABS: ANISOCYTOSIS 1+
[2021-11-01 15:39] VITALS: O2SAT 95
== END 2021-11-01 13:31 | disposition short-term general hospital (02) ==
LOC: ED 08:49
DX: A41.9 Sepsis, unspecified organism (principal); J18.9 Pneumonia, unspecified organism; R06.09 Other forms of dyspnea; R05.1 Acute cough; R07.9 Chest pain, unspecified; R60.0 Localized edema; I10 Essential (primary) hypertension; Z72.0 Tobacco use; Z79.899 Other long term (current) drug therapy
CPT/HCPCS: 0241U; 36000; 36415; 71045; 71260; 80053; 81015; 83605; 83880; 84484; 85025; 85379; 85610; 85730; 87040; 87086; 93005; 94640; 96374; 96375; 96376; 99285; 99291; J2270; J2405; J3010; J7609; A9270-GY

== ENCOUNTER 2022-05-17 08:09 | Emergency (ER) | payer OTHER ==
[2022-05-17] MEDS ORDERED: Zofran 4 MG/2 ML VIAL IV ONE (08:34)
[2022-05-17] MEDS ORDERED: Sodium Chloride 0.9% 1000 ML 1,000 ML IV STA (08:34)
[2022-05-17] MEDS ORDERED: Zofran 4 MG/2 ML VIAL ONE (08:55)
[2022-05-17] MEDS ORDERED: Sodium Chloride 0.9% 1000 ML 1,000 ML ONE (08:58)
[2022-05-17 09:07] LABS: Absolute Neutrophil Ct (ANC) 6.98 x10^3/uL (1.4-6.9); Basophil (Absolute #) 0.12 x10^3/uL (0-0.4); Eosinophil % 0.4 % (0.00-5.0); Eosinophil (Absolute #) 0.05 x10^3/uL (0-0.5); Hematocrit 43.7 % (35-47); Hemoglobin 13.4 g/dL (12.0-16.0); Lymphocyte (Absolute #) 2.44 x10^3/uL (1.0-4.6); Lymphocytes % 21.7 % (24.0-44.0); Mean Cell Volume 95.6 fL (78-100); Mean Corpuscular Hemoglobin 29.3 pg (26-32); Mean Corpuscular Hgb Concent. 30.7 g/dL (32-36); Mean Platelet Volume 10.1 fL (7.5-11.0); Monocyte (Absolute #) 0.77 x10^3/uL (0.0-1.3); Monocytes % 6.9 % (0.0-12.0); Neutrophil % 62.1 % (36.0-66.0); Platelet Count 215 x10^3/uL (150-450); Red Blood Count 4.57 x10^6/uL (4.1-5.4); Red Cell Distribution Width 14.1 % (11.5-14.0); White Blood Count 11.2 x10^3/uL (4.0-10.5)
[2022-05-17 09:19] LABS: ALKALINE PHOSPHATASE 192 U/L (38-126); ANION GAP 13.3 MEQ/L (5-15); BLOOD UREA NITROGEN 15 mg/dL (7-17); CHLORIDE 105 mmol/L (98-107); Carbon Dioxide 23 mmol/L (22-30); EST GLOMERULAR FILTRATION RATE > 60.0 ML/MIN; Glucose 169 mg/dL (74-106); LIPASE 245 U/L (23-300); Potassium 3.5 mmol/L (3.5-5.1); SGOT/AST 126 U/L (14-36); SGPT/ALT 183 U/L (0-35); SODIUM 138 mmol/L (137-145); Total Protein 6.4 g/dL (6.3-8.2)
--- NOTE | 2022-05-17 09:28 | XRAY ---
Indication: Weakness. History carcinoma. Comparison: November 01, 2021 Portable chest again demonstrates chronic right hemidiaphragm elevation with minimal right base subsegmental atelectasis. Remaining heart, lungs, and bony thorax normal. No new/acute findings.
--- NOTE | 2022-05-17 09:36 | XRAY ---
Indication: Frequent falls. Status post brain tumor excision August 2021. Multiple contiguous axial images obtained through the head without contrast. Comparison: None Large focus of left temporoparietal craniotomy with underlying mesh. Left temporal lobe demonstrates zazueta and white matter hypoattenuations favoring edema either postsurgical/post therapeutic versus known malignancy. Lack of IV contrast precludes further characterization. There is no acute intracranial hemorrhage, mass effect, or hydrocephalus. Remaining brain demonstrates periventricular hypoattenuations, left greater than right favoring degenerative micro-ischemia in this age group. Remaining bony calvarium intact. Visualized paranasal sinuses and mastoid air cells are clear. Impression: 1. Left temporoparietal craniotomy. Underlying left temporal lobe hypoattenuations either postsurgical/post-therapeutic versus known malignancy. Outside comparison studies would be beneficial. No acute intracranial hemorrhage. 2. Probable bilateral periventricular degenerative micro-ischemia within normal limits for patient's age.
--- NOTE | 2022-05-17 09:38 | XRAY ---
Indication: Frequent falls. Status post brain tumor excision August 2021. Multiple contiguous axial images obtained through the cervical spine. Sagittal and coronal reformatted images obtained. Comparison: None Axial images negative for acute fracture, suspicious bony lesions, or spinal canal stenosis. Minimal C5-C6 degenerative endplate spurring and mild multilevel bilateral degenerative facet hypertrophy, left greater than right. Also moderate atlantoaxial degenerative changes. Sagittal and coronal reformatted images demonstrates lordotic straightening, positional versus paraspinal spasm. Minimal C5-C6 disc space narrowing. No acute compression fracture, subluxation, or jumped facet. Normal appearing cranial cervical junction. Visualized noncontrasted soft tissues are unremarkable. Impression: 1. Lordotic straightening, positional versus paraspinal spasm. Negative acute fracture/subluxation. 2. Multilevel degenerative changes.
[2022-05-17 09:41] LABS: Lymphocytes 27 % (24-44); Metamyelocyte 1 %; Monocyte 9 % (0.0-12.0); Platelet Estimate NORMAL (NORMAL); Total Cells Counted 100
[2022-05-17 09:52] LABS: Mucus SLIGHT /HPF (NEGATIVE); WBC 0-2 /HPF (0-5)
[2022-05-17 09:54] LABS: Appearance CLEAR (CLEAR); Bilirubin MODERATE (NEGATIVE); Dipstick done @ ? MAIN LAB; Glucose NEGATIVE (NEGATIVE); Ketones TRACE (NEGATIVE); Nitrite NEGATIVE (NEGATIVE); Protein,Urine Dip TRACE (Negative); RBC NEGATIVE Ery/ul (0-5); Specific Gravity >=1.030 (1.005-1.025); Urobilinogen 1 mg/dL (0-1)
[2022-05-17 09:55] LABS: Urine Cultured Indicated? NO
[2022-05-17 10:02] LABS: MAGNESIUM 2.1 mg/dL (1.6-2.3)
--- NOTE | 2022-05-17 11:15 | ERPHSYRPT ---
- History of Present Illness Time Seen by Provider: 05/17/22 08:33 Source: patient Exam Limitations: no limitations Patient Subjective Stated Complaint: pt here for falls, weakness and loose stools that is chronic for her, pt has hx of brain cancer and is not getting treatment at this time. she has some help at home, but is on hospice, Triage Nursing Assessment: pt arrived per ambulance,pt alert, resp easy, face mask in place, pt has stool on legs that was cleaned, has bruising to bottuck and and swelling and bruising to right foot, she states she has been falling almost daily this week, abd soft, Physician History: 46 years old female with history of hypertension, hyperlipidemia, GERD, anxiety, depression, brain cancer status post resection, did not complete chemotherapy on hospice with chronic diarrhea presented in ER with worsening weakness fatigue and tiredness for the last few weeks to the point that she states "I cannot take it anymore". Feels lightheaded and has been falling frequently, couple of times yesterday with positive hitting her head without loss of consciousness. Denies any focal numbness tingling or weakness. Patient has a DNR CODE STATUS. Timing/Duration: week(s), gradual onset, worse Severity: moderate, severe Modifying Factors: Improves With: nothing Associated Symptoms: nausea, loss of appetite, malaise, weakness, No vomiting, No abdominal pain, No shortness of breath, No chills, No chest pain Allergies/Adverse Reactions: cephalexin [From Keflex] Allergy (Verified 05/17/22 08:18) codeine Allergy (Verified 05/17/22 08:18) latex Allergy (Verified 05/17/22 08:18) Penicillins Allergy (Verified 05/17/22 08:18) Home Medications: Acetaminophen [Tylenol Arthritis] 650 mg PO DAILY PRN PRN 05/07/20 [History] Buspirone HCl [Buspar] 15 mg PO TID 05/07/20 [History] Cimetidine 200 mg PO DAILY PRN PRN 05/07/20 [History] Duloxetine HCl 30 mg PO BID 05/07/20 [History] Lisinopril 10 mg [Zestril 10 MG] 10 mg PO DAILY 05/07/20 [History] Montelukast Sodium 10 mg [Singulair 10 MG] 10 mg PO DAILY 05/07/20 [History] Multivit-Min/Iron/Folic/Lutein [Multivitamin Women 50 Plus Tab] 1 tab PO DAILY 05/07/20 [History] Pantoprazole 20 mg [Protonix 20MG Tablet] 40 mg PO DAILY 05/07/20 [History] diphenhydrAMINE HCL [Benadryl] 25 mg PO DAILY PRN PRN 05/07/20 [History] estradioL [Estradiol] 2 mg PO DAILY 05/07/20 [History] hydrOXYzine HCL [Hydroxyzine HCl] 25 mg PO TID 05/07/20 [History] Tremozolomide 180 mg PO HS 11/01/21 [History] Pregabalin 50 mg [Lyrica 50MG] 1 ea BID 05/17/22 [History] Hx Tetanus, Diphtheria Vaccination/Date Given: No Hx Influenza Vaccination/Date Given: Yes Hx Pneumococcal Vaccination/Date Given: No Immunizations Up to Date: Yes Travel Risk - International Travel Have you traveled outside of the country in past 3 weeks: No - Coronavirus Screening Are you exhibiting any of the following symptoms?: No - Vaccine Status Have you recieved a Covid-19 vaccination: Yes [employer]: Moderna - Vaccination Dates Date of 2cond Vaccination (if applicable): 11/04/20 - Review of Systems Constitutional: Fatigue, Weakness Eyes: No Symptoms Ears, Nose, & Throat: No Symptoms Respiratory: No Symptoms Cardiac: No Symptoms Abdominal/Gastrointestinal: Diarrhea Genitourinary Symptoms: No Symptoms Musculoskeletal: Arthralgias Skin: No Symptoms Neurological: No Symptoms Psychological: Anxiety, Depression Endocrine: No Symptoms Hematologic/Lymphatic: No Symptoms Immunological/Allergic: No Symptoms - Past Medical History Pertinent Past Medical History: Yes Neurological History: Migraines, Other Cardiac History: Hypertension Respiratory History: Asthma, Pneumonia Endocrine Medical History: No Pertinent History Musculoskeletal History: Fibromyalgia, Osteoarthritis, Rheumatoid Arthritis GI Medical History: Gallbladder Disease, Pancreatitis Psycho-Social History: Anxiety, Depression Female Reproductive Disorders: Abnormal Uterine Bleeding, Endometriosis, Menstrual Problems Other Medical History: SX HX: CHOLESTECTOMY, RONN, - Past Surgical History Past Surgical History: Yes Neuro Surgical History: No Pertinent History Cardiac: No Pertinent History Respiratory: No Pertinent History Gastrointestinal: Cholecystectomy, Exploratory Laparoscopy Genitourinary: No Pertinent History Musculoskeletal: No Pertinent History Female Surgical History: Hysterectomy - Social History Smoking Status: Current every day smoker How long have you smoked: years Exposure to second hand smoke: Yes Drug Use: none Patient Lives Alone: No - Female History Hx Last Menstrual Period: post Hx Now: (unkn) - Nursing Vital Signs Nursing Vital Signs: Initial Vital Signs Temperature 96.7 F 05/17/22 08:26 Pulse Rate 108 H 05/17/22 08:26 Respiratory Rate 18 05/17/22 08:26 Blood Pressure 156/97 05/17/22 08:26 O2 Sat by Pulse Oximetry 98 05/17/22 08:26 Pain Scale Pain Intensity 0 - Physical Exam General Appearance: no apparent distress, alert Eye Exam: PERRL/EOMI Ears, Nose, Throat Exam: normal ENT inspection Neck Exam: normal inspection, supple, full range of motion Respiratory Exam: normal breath sounds, lungs clear Cardiovascular Exam: regular rate/rhythm, normal heart sounds Gastrointestinal/Abdomen Exam: soft, normal bowel sounds Back Exam: normal inspection, normal range of motion Extremity Exam: normal inspection, normal range of motion Neurologic Exam: alert, oriented x 3, cooperative, legal arbitrator II-XII nml as tested, sensation nml, No normal mood/affect, No motor deficits Skin Exam: normal color SpO2 Interpretation: normal SpO2: 98 O2 Delivery: Room Air - Course EKG Interpreted by Me: RATE ([id number]), Sinus Tach, Left [place] Deviation, NORMAL INTERVALS, Q-wave, Non-specific ST Changes Ordered Tests: Active Orders 24 hr Category Date Time Status EKG-ER Only STAT Care 05/17/22 08:34 Active IV Insertion STAT Care 05/17/22 08:34 Active NPO (ED) STAT Care 05/17/22 08:34 Active CERVICAL SPINE WO CONTRAST [CT] Stat Exams 05/17/22 08:33 Completed CHEST 1 VIEW (PORTABLE) Stat Exams 05/17/22 08:34 Completed HEAD WITHOUT CONTRAST [CT] Stat Exams 05/17/22 08:33 Completed BLOOD CULTURE Stat Lab 05/17/22 09:00 Received BNP [NT PRO BNP] Stat Lab 05/17/22 09:04 Completed CBC W DIFF Stat Lab 05/17/22 09:04 Completed CMP Stat Lab 05/17/22 09:04 Completed LIPASE Stat Lab 05/17/22 09:04 Completed Lactic Acid Stat Lab 05/17/22 08:55 Completed Lactic Acid Stat Lab 05/17/22 11:04 Completed MAG [MAGNESIUM] Stat Lab 05/17/22 09:04 Completed Manual Differential NC Stat Lab 05/17/22 09:04 Completed PROCALCITONIN Stat Lab 05/17/22 09:04 Completed TROPONIN Q4H Lab 05/17/22 08:45 Completed TROPONIN Q4H Lab 05/17/22 13:30 Completed TROPONIN Q4H Lab 05/17/22 16:45 Ordered UA W/RFX CULTURE Stat Lab 05/17/22 09:42 Completed Medication Summary Discontinued Medications Generic Name Dose Route Start Last Admin Trade Name Freq PRN Reason Stop Dose Admin Sodium Chloride 1,000 mls @ 999 mls/hr 05/17/22 08:34 05/17/22 10:09 Sodium Chloride 0.9% 1000 Ml IV 05/17/22 09:34 Infused .Q1H1M STA Infusion Sodium Chloride Confirm 05/17/22 08:58 Sodium Chloride 0.9% 1000 Ml Administered 05/17/22 08:59 Dose 1,000 mls @ ud .ROUTE .STK-MED ONE Ondansetron HCl 4 mg 05/17/22 08:34 05/17/22 09:03 Ondansetron Hcl 4 Mg/2 Ml Vial IV 05/17/22 08:35 4 mg STAT ONE Administration Ondansetron HCl Confirm 05/17/22 08:55 Ondansetron Hcl 4 Mg/2 Ml Vial Administered 05/17/22 08:56 Dose 4 mg .ROUTE .STK-MED ONE Lab/Rad Data: Laboratory Result Diagrams 05/17/22 09:04 05/17/22 09:04 Laboratory Results 05/17/22 05/17/22 05/17/22 Range/Units 13:30 12:40 11:04 WBC (4.0-10.5) x10^3/uL RBC (4.1-5.4) x10^6/uL Hgb (12.0-16.0) g/dL Hct (35-47) % MCV (78-100) fL MCH (26-32) pg MCHC (32-36) g/dL RDW (11.5-14.0) % Plt Count (150-450) x10^3/uL MPV (7.5-11.0) fL Gran % (36.0-66.0) % Immature Gran % (Auto) (0.00-0.4) % Nucleat RBC Rel Count (0.00-0.1) % Eos # (Auto) (0-0.5) x10^3/uL Immature Gran # (Auto) (0.00-0.03) x10^3u/L Absolute Lymphs (auto) (1.0-4.6) x10^3/uL Absolute Monos (auto) (0.0-1.3) x10^3/uL Absolute Nucleated RBC (0.00-0.01) x10^3u/L Lymphocytes % (24.0-44.0) % Monocytes % (0.0-12.0) % Eosinophils % (0.00-5.0) % Basophils % (0.0-0.4) % Absolute Granulocytes (1.4-6.9) x10^3/uL Segmented Neutrophils (36.0-66.0) % Lymphocytes (Manual) (24-44) % Monocytes (Manual) (0.0-12.0) % Basophils # (0-0.4) x10^3/uL Metamyelocytes % Platelet Estimate (NORMAL) RBC Morphology Sodium (137-145) mmol/L Potassium (3.5-5.1) mmol/L Chloride (98-107) mmol/L Carbon Dioxide (22-30) mmol/L Anion Gap (5-15) MEQ/L BUN (7-17) mg/dL Creatinine (0.52-1.04) mg/dL Estimated GFR ML/MIN Glucose (74-106) mg/dL Lactic Acid 1.4 (0.4-2.0) Calcium (8.4-10.2) mg/dL Magnesium (1.6-2.3) mg/dL Total Bilirubin (0.2-1.3) mg/dL AST (14-36) U/L ALT (0-35) U/L Alkaline Phosphatase (38-126) U/L Troponin I < 0.012 (0.000-0.034) ng/mL NT-Pro-B Natriuret Pep (0-450) pg/mL Serum Total Protein (6.3-8.2) g/dL Albumin (3.5-5.0) g/dL Lipase (23-300) U/L Procalcitonin (0.030-0.080) ng/mL Urinalys Dipstick Clnc Urine Color (YELLOW) Urine Appearance (CLEAR) Urine pH (5-6) Ur Specific [place] (1.005-1.025) POC Urine Protein Conf (Negative) Urine Ketones (NEGATIVE) Urine Nitrite (NEGATIVE) Urine Bilirubin (NEGATIVE) Urine Urobilinogen (0-1) mg/dL Urine Leukocytes (NEGATIVE) Urine WBC (Auto) (0-5) /HPF Urine RBC (Auto) (0-2) /HPF U Epithel Cells (Auto) (FEW) /HPF Urine Bacteria (Auto) (NEGATIVE) /HPF Urine RBC (0-5) Christiano/ul Urine Mucus (Auto) (NEGATIVE) /HPF Ur Culture Indicated? Urine Glucose (NEGATIVE) mg/dL Influenza Type A Ag NEGATIVE (NEGATIVE) Influenza Type B Ag NEGATIVE (NEGATIVE) RSV (PCR) NEGATIVE (Negative) SARS-CoV-2 (PCR) NEGATIVE (NEGATIVE) 05/17/22 05/17/22 05/17/22 Range/Units 09:42 09:04 09:04 WBC (4.0-10.5) x10^3/uL RBC (4.1-5.4) x10^6/uL Hgb (12.0-16.0) g/dL Hct (35-47) % MCV (78-100) fL MCH (26-32) pg MCHC (32-36) g/dL RDW (11.5-14.0) % Plt Count (150-450) x10^3/uL MPV (7.5-11.0) fL Gran % (36.0-66.0) % Immature Gran % (Auto) (0.00-0.4) % Nucleat RBC Rel Count (0.00-0.1) % Eos # (Auto) (0-0.5) x10^3/uL Immature Gran # (Auto) (0.00-0.03) x10^3u/L Absolute Lymphs (auto) (1.0-4.6) x10^3/uL Absolute Monos (auto) (0.0-1.3) x10^3/uL Absolute Nucleated RBC (0.00-0.01) x10^3u/L Lymphocytes % (24.0-44.0) % Monocytes % (0.0-12.0) % Eosinophils % (0.00-5.0) % Basophils % (0.0-0.4) % Absolute Granulocytes (1.4-6.9) x10^3/uL Segmented Neutrophils (36.0-66.0) % Lymphocytes (Manual) (24-44) % Monocytes (Manual) (0.0-12.0) % Basophils # (0-0.4) x10^3/uL Metamyelocytes % Platelet Estimate (NORMAL) RBC Morphology Sodium (137-145) mmol/L Potassium (3.5-5.1) mmol/L Chloride (98-107) mmol/L Carbon Dioxide (22-30) mmol/L Anion Gap (5-15) MEQ/L BUN (7-17) mg/dL Creatinine (0.52-1.04) mg/dL Estimated GFR ML/MIN Glucose (74-106) mg/dL Lactic Acid (0.4-2.0) Calcium (8.4-10.2) mg/dL Magnesium 2.1 (1.6-2.3) mg/dL Total Bilirubin (0.2-1.3) mg/dL AST (14-36) U/L ALT (0-35) U/L Alkaline Phosphatase (38-126) U/L Troponin I (0.000-0.034) ng/mL NT-Pro-B Natriuret Pep 149 (0-450) pg/mL Serum Total Protein (6.3-8.2) g/dL Albumin (3.5-5.0) g/dL Lipase (23-300) U/L Procalcitonin 0.206 H (0.030-0.080) ng/mL Urinalys Dipstick Clnc MAIN LAB Urine Color ORANGE A (YELLOW) Urine Appearance CLEAR (CLEAR) Urine pH 5.0 (5-6) Ur Specific [place] >=1.030 A (1.005-1.025) POC Urine Protein Conf TRACE A (Negative) Urine Ketones TRACE A (NEGATIVE) Urine Nitrite NEGATIVE (NEGATIVE) Urine Bilirubin MODERATE A (NEGATIVE) Urine Urobilinogen 1 A (0-1) mg/dL Urine Leukocytes NEGATIVE (NEGATIVE) Urine WBC (Auto) 0-2 (0-5) /HPF Urine RBC (Auto) NONE (0-2) /HPF U Epithel Cells (Auto) NONE (FEW) /HPF Urine Bacteria (Auto) NONE (NEGATIVE) /HPF Urine RBC NEGATIVE (0-5) Christiano/ul Urine Mucus (Auto) SLIGHT A (NEGATIVE) /HPF Ur Culture Indicated? NO Urine Glucose NEGATIVE (NEGATIVE) mg/dL Influenza Type A Ag (NEGATIVE) Influenza Type B Ag (NEGATIVE) RSV (PCR) (Negative) SARS-CoV-2 (PCR) (NEGATIVE) 05/17/22 05/17/22 05/17/22 Range/Units 09:04 09:04 08:55 WBC 11.2 H (4.0-10.5) x10^3/uL RBC 4.57 (4.1-5.4) x10^6/uL Hgb 13.4 (12.0-16.0) g/dL Hct 43.7 (35-47) % MCV 95.6 (78-100) fL MCH 29.3 (26-32) pg MCHC 30.7 L (32-36) g/dL RDW 14.1 H (11.5-14.0) % Plt Count 215 (150-450) x10^3/uL MPV 10.1 (7.5-11.0) fL Gran % 62.1 (36.0-66.0) % Immature Gran % (Auto) 7.8 H (0.00-0.4) % Nucleat RBC Rel Count 0.4 H (0.00-0.1) % Eos # (Auto) 0.05 (0-0.5) x10^3/uL Immature Gran # (Auto) 0.88 H (0.00-0.03) x10^3u/L Absolute Lymphs (auto) 2.44 (1.0-4.6) x10^3/uL Absolute Monos (auto) 0.77 (0.0-1.3) x10^3/uL Absolute Nucleated RBC 0.04 H (0.00-0.01) x10^3u/L Lymphocytes % 21.7 L (24.0-44.0) % Monocytes % 6.9 (0.0-12.0) % Eosinophils % 0.4 (0.00-5.0) % Basophils % 1.1 (0.0-0.4) % Absolute Granulocytes 6.98 H (1.4-6.9) x10^3/uL Segmented Neutrophils 63 (36.0-66.0) % Lymphocytes (Manual) 27 (24-44) % Monocytes (Manual) 9 (0.0-12.0) % Basophils # 0.12 (0-0.4) x10^3/uL Metamyelocytes 1 % Platelet Estimate NORMAL (NORMAL) RBC Morphology NORMAL Sodium 138 (137-145) mmol/L Potassium 3.5 (3.5-5.1) mmol/L Chloride 105 (98-107) mmol/L Carbon Dioxide 23 (22-30) mmol/L Anion Gap 13.3 (5-15) MEQ/L BUN 15 (7-17) mg/dL Creatinine 0.60 (0.52-1.04) mg/dL Estimated GFR > 60.0 ML/MIN Glucose 169 H (74-106) mg/dL Lactic Acid 2.6 H (0.4-2.0) Calcium 9.0 (8.4-10.2) mg/dL Magnesium (1.6-2.3) mg/dL Total Bilirubin 1.20 (0.2-1.3) mg/dL AST 126 H (14-36) U/L ALT 183 H (0-35) U/L Alkaline Phosphatase 192 H (38-126) U/L Troponin I (0.000-0.034) ng/mL NT-Pro-B Natriuret Pep (0-450) pg/mL Serum Total Protein 6.4 (6.3-8.2) g/dL Albumin 4.0 (3.5-5.0) g/dL Lipase 245 (23-300) U/L Procalcitonin (0.030-0.080) ng/mL Urinalys Dipstick Clnc Urine Color (YELLOW) Urine Appearance (CLEAR) Urine pH (5-6) Ur Specific [place] (1.005-1.025) POC Urine Protein Conf (Negative) Urine Ketones (NEGATIVE) Urine Nitrite (NEGATIVE) Urine Bilirubin (NEGATIVE) Urine Urobilinogen (0-1) mg/dL Urine Leukocytes (NEGATIVE) Urine WBC (Auto) (0-5) /HPF Urine RBC (Auto) (0-2) /HPF U Epithel Cells (Auto) (FEW) /HPF Urine Bacteria (Auto) (NEGATIVE) /HPF Urine RBC (0-5) Christiano/ul Urine Mucus (Auto) (NEGATIVE) /HPF Ur Culture Indicated? Urine Glucose (NEGATIVE) mg/dL Influenza Type A Ag (NEGATIVE) Influenza Type B Ag (NEGATIVE) RSV (PCR) (Negative) SARS-CoV-2 (PCR) (NEGATIVE) 05/17/22 Range/Units 08:45 WBC (4.0-10.5) x10^3/uL RBC (4.1-5.4) x10^6/uL Hgb (12.0-16.0) g/dL Hct (35-47) % MCV (78-100) fL MCH (26-32) pg MCHC (32-36) g/dL RDW (11.5-14.0) % Plt Count (150-450) x10^3/uL MPV (7.5-11.0) fL Gran % (36.0-66.0) % Immature Gran % (Auto) (0.00-0.4) % Nucleat RBC Rel Count (0.00-0.1) % Eos # (Auto) (0-0.5) x10^3/uL Immature Gran # (Auto) (0.00-0.03) x10^3u/L Absolute Lymphs (auto) (1.0-4.6) x10^3/uL Absolute Monos (auto) (0.0-1.3) x10^3/uL Absolute Nucleated RBC (0.00-0.01) x10^3u/L Lymphocytes % (24.0-44.0) % Monocytes % (0.0-12.0) % Eosinophils % (0.00-5.0) % Basophils % (0.0-0.4) % Absolute Granulocytes (1.4-6.9) x10^3/uL Segmented Neutrophils (36.0-66.0) % Lymphocytes (Manual) (24-44) % Monocytes (Manual) (0.0-12.0) % Basophils # (0-0.4) x10^3/uL Metamyelocytes % Platelet Estimate (NORMAL) RBC Morphology Sodium (137-145) mmol/L Potassium (3.5-5.1) mmol/L Chloride (98-107) mmol/L Carbon Dioxide (22-30) mmol/L Anion Gap (5-15) MEQ/L BUN (7-17) mg/dL Creatinine (0.52-1.04) mg/dL Estimated GFR ML/MIN Glucose (74-106) mg/dL Lactic Acid (0.4-2.0) Calcium (8.4-10.2) mg/dL Magnesium (1.6-2.3) mg/dL Total Bilirubin (0.2-1.3) mg/dL AST (14-36) U/L ALT (0-35) U/L Alkaline Phosphatase (38-126) U/L Troponin I < 0.012 (0.000-0.034) ng/mL NT-Pro-B Natriuret Pep (0-450) pg/mL Serum Total Protein (6.3-8.2) g/dL Albumin (3.5-5.0) g/dL Lipase (23-300) U/L Procalcitonin (0.030-0.080) ng/mL Urinalys Dipstick Clnc Urine Color (YELLOW) Urine Appearance (CLEAR) Urine pH (5-6) Ur Specific [place] (1.005-1.025) POC Urine Protein Conf (Negative) Urine Ketones (NEGATIVE) Urine Nitrite (NEGATIVE) Urine Bilirubin (NEGATIVE) Urine Urobilinogen (0-1) mg/dL Urine Leukocytes (NEGATIVE) Urine WBC (Auto) (0-5) /HPF Urine RBC (Auto) (0-2) /HPF U Epithel Cells (Auto) (FEW) /HPF Urine Bacteria (Auto) (NEGATIVE) /HPF Urine RBC (0-5) Christiano/ul Urine Mucus (Auto) (NEGATIVE) /HPF Ur Culture Indicated? Urine Glucose (NEGATIVE) mg/dL Influenza Type A Ag (NEGATIVE) Influenza Type B Ag (NEGATIVE) RSV (PCR) (Negative) SARS-CoV-2 (PCR) (NEGATIVE) - Progress Progress: improved, re-examined Progress Note: 05/17/22 15:31 46 years old with history of brain cancer we did not receive full chemotherapy and currently on hospice is evaluated for worsening generalized weakness and fatigue. I have obtained CT head which showed some element of malignancy but no acute trauma related findings and also negative CT cervical spine. Chest x-ray no acute cardiopulmonary findings. Has a white count of 11, negative troponins and mildly elevated lactate, given fluids and it is improved on recheck. Patient has procalcitonin of 1.2 with no obvious focus of infection. Blood cultures are obtained. I have discussed with who does not think patient needs to be admitted and have involved [facility] who has spoken with their office staff and have determined that patient living situation at home is not good enough that she can be sent back there and have arrange respite care [facility] and patient is being discharged there. Patient has issues with balance and cannot walk long at all. I have discussed with patient in detail about the work-up findings and plan and she agreed with it. 05/17/22 15:[address] Linn Counseled pt/family regarding: lab results, diagnosis, need for follow-up, rad results - Departure Departure Disposition: Home Clinical Impression: Generalized weakness, Brain malignancy, Hospice care patient Condition: Stable Critical Care Time: No Referrals: DON GATICA [Primary Care Provider] - Follow up/PCP as directed (1-2 days for reevaluation) Instructions: Preventing Falls in Older Adults Additional Instructions: Use Cane/walker for ambulation all the time to avoid another fall. Follow-up with your primary care and follow directions by hospice. Return to ER for any worsening.
[2022-05-17 13:26] LABS: INFLUENZA A NEGATIVE (NEGATIVE); INFLUENZA B NEGATIVE (NEGATIVE); RESPIRATORY SYNCTIAL VIRUS NEGATIVE (Negative); SARS-CoV-2 Xpert Express NEGATIVE (NEGATIVE)
[2022-05-17 15:35] VITALS: O2SAT 98
[2022-05-17 16:48] VITALS: BP 164/104; PULSE 108
== END 2022-05-17 16:49 ==
LOC: ED 08:09
DX: R53.1 Weakness (principal); C71.9 Malignant neoplasm of brain, unspecified; Z66 Do not resuscitate; R53.83 Other fatigue; R42 Dizziness and giddiness; Z91.81 History of falling; I10 Essential (primary) hypertension; Z72.0 Tobacco use; Z79.899 Other long term (current) drug therapy
CPT/HCPCS: 0241U; 36000; 36415; 70450; 71045; 72125; 80053; 81015; 83605; 83690; 83735; 83880; 84145; 84484; 85025; 87040; 93005; 96360; 96374; 99284; P9612; J2405